=== PATIENT | female | born 1975 | race Caucasian/White ===

== ENCOUNTER 2021-06-30 08:53 | Outpatient (REF) | payer OTHER, SELFPAY ==
[2021-06-30 11:22] LABS: MANUAL DIFF FLAG NO
[2021-06-30 11:36] LABS: Basophils Percent Auto 0.2 % (0-2); Eosinophils Absolute Auto 0.1 X10*3/uL (0.0-0.4); Hematocrit 36.1 % (37.0-47.0); Hemoglobin 12.3 g/dl (12.0-16.0); Imm Gran Abs Auto 0.01 X10*3/uL (0.00-0.03); Imm Gran Pct Auto 0.2 % (0.0-0.4); Lymphocytes Absolute Auto 1.5 X10*3/uL (1.2-4.9); Lymphocytes Percent Auto 27.7 % (20-40); Mean Corpuscular HGB Conc 34.1 g/dl (31.0-35.0); Mean Corpuscular Hemoglobin 30.2 pg (27.0-33.0); Mean Corpuscular Volume 88.7 fL (80.0-98.0); Mean Platelet Volume 9.8 fL (9.4-12.3); Monocytes Absolute Auto 0.4 X10*3/uL (0.1-1.2); Monocytes Percent Auto 6.8 % (2-11); Neutrophils Absolute Auto 3.5 x10*3/uL (2.0-8.3); Neutrophils Percent Auto 63.1 % (45-73); Platelet Count 360 X10*3/uL (160-400); Red Blood Count 4.07 X10*6/uL (4.20-5.50); White Blood Count 5.5 X10*3/uL (4.8-10.8)
[2021-06-30 11:49] LABS: Alanine Aminotransferase 27 U/L (0-31); Anion Gap 12 (12-20); Aspartate Amino Transferase 25 U/L (5-31); Blood Urea Nitrogen 10 mg/dL (9-16); Calcium 9.7 mg/dL (8.4-10.2); Carbon Dioxide 24 mmol/L (22-29); Chloride 109 mmol/L (96-108); Cholesterol 175 mg/dL; Estimated Glomerular Filt Rate > 60; Glucose Fasting 93 mg/dL (60-99); HDL Cholesterol 52 mg/dL; LDL Cholesterol Calculated 109 mg/dl; Potassium 4.3 mmol/L (3.3-5.1); Sodium 141 mmol/L (135-145); Triglycerides 72 mg/dL
[2021-06-30 12:10] LABS: Free T4 (Free Thyroxine) 0.98 ng/dL (0.71-1.85); Thyroid Stimulating Hormone 1.04 uIU/mL (0.32-4.0); Vitamin D 25-OH Total 31.3 ng/mL (>30)
== END 2021-06-30 08:54 | disposition home or self-care (01) ==
LOC: HO.HMGCLDS 08:53
PROVIDERS: PCP Internal Medicine; Visit Provider Internal Medicine
DX: Z00.01 Encounter for general adult medical examination with abnormal findings (principal); E04.1 Nontoxic single thyroid nodule; E03.9 Hypothyroidism, unspecified; I10 Essential (primary) hypertension
CPT/HCPCS: 36415; 80048; 80061; 82306; 84439; 84443; 84450; 84460; 85025

== ENCOUNTER 2022-03-06 08:25 | Outpatient (REF) | payer OTHER, SELFPAY ==
--- NOTE | ~2022-03-06 | XR_ITS ---
EXAMINATION: XR SHOULDER, LEFT CLINICAL INFORMATION: Pain COMPARISON: None TECHNIQUE: Three views of the left shoulder. FINDINGS: Bone alignment is normal. No fracture or dislocation is seen. Joint spaces are normal. There is soft tissue calcification adjacent to the humeral head and greater tuberosity suggestive of calcific tendinitis. XR/XR shoulder LT min 2V IMPRESSION: Soft tissue calcification suggestive of calcific tendinitis.
== END 2022-03-06 08:26 | disposition home or self-care (01) ==
LOC: HO.HOSX 08:25
PROVIDERS: Visit Provider Orthopaedic Surgery
DX: M75.32 Calcific tendinitis of left shoulder (principal); R29.898 Other symptoms and signs involving the musculoskeletal system
CPT/HCPCS: 73030; 99202

== ENCOUNTER 2022-03-17 12:53 | Outpatient (REF) | payer OTHER, SELFPAY ==
--- NOTE | ~2022-03-17 | MR_ITS ---
EXAMINATION: MRI SHOULDER WITHOUT CONTRAST, LEFT CLINICAL INFORMATION: Calcific tendinitis. COMPARISON: X-ray 03/06/2022. TECHNIQUE: MRI of the shoulder without contrast is performed in a 1.5 Shira high-field scanner. FINDINGS: CORACOACROMIAL ARCH: No significant acromioclavicular arthritis. No significant fluid in the subacromial subdeltoid space. Undersurface of the acromion is concave. ROTATOR CUFF: Mild supraspinatus tendinosis. 1.5 x 1.5 cm (AP x ML), low T1/T2 signal focus in the supraspinatus tendon compatible with calcific tendinitis. This correlates with the x-ray findings. No focal tear. Infraspinatus, teres minor intact. Minimal distal subscapularis tendinosis. ROTATOR CUFF MUSCLES: No muscle atrophy or fatty infiltration. BICEPS TENDON: Intact LABRUM/CAPSULE: Small caliber posterior labrum. No focal labral tear is otherwise seen. GLENOHUMERAL JOINT/MARROW: Marrow signal is within normal limits. No fracture. No significant effusion. MR/MR shoulder LT wo con IMPRESSION: 1. Mild supraspinatus tendinosis. 1.5 x 1.5 cm focus of calcific tendinitis. 2. Small caliber posterior labrum. 3. Minimal distal subscapularis tendinosis.
== END 2022-03-17 12:54 | disposition home or self-care (01) ==
LOC: HO.MRI 12:53
PROVIDERS: Visit Provider Orthopaedic Surgery
DX: M75.32 Calcific tendinitis of left shoulder (principal); R29.898 Other symptoms and signs involving the musculoskeletal system
CPT/HCPCS: 73221

== ENCOUNTER → 2022-03-23 10:38 | Outpatient (BNVA) | payer OTHER, SELFPAY | PROVIDERS: PCP Internal Medicine; Visit Provider Orthopaedic Surgery | DX: S43.432D Superior glenoid labrum lesion of left shoulder, subsequent encounter (principal); R29.898 Other symptoms and signs involving the musculoskeletal system | CPT/HCPCS: 99212 ==

== ENCOUNTER 2022-07-04 08:00 | Outpatient (REF) | payer OTHER, SELFPAY ==
[2022-07-04 11:38] LABS: Hematocrit 37.8 % (37.0-47.0); Hemoglobin 12.5 g/dl (12.0-16.0)
[2022-07-04 14:12] LABS: Alanine Aminotransferase 22 U/L (0-31); Albumin Level 4.6 g/dL (3.5-5.0); Alkaline Phosphatase 50 U/L (39-117); Anion Gap 12 (12-20); Aspartate Amino Transferase 21 U/L (5-31); Bilirubin Total 0.4 mg/dL (0.0-1.0); Blood Urea Nitrogen 10 mg/dL (9-16); Calcium 9.3 mg/dL (8.4-10.2); Carbon Dioxide 25 mmol/L (22-29); Chloride 108 mmol/L (96-108); Cholesterol 178 mg/dL; Estimated Glomerular Filt Rate > 60; Glucose Fasting 104 mg/dL (60-99); HDL Cholesterol 55 mg/dL; LDL Cholesterol Calculated 107 mg/dl; Potassium 4.6 mmol/L (3.3-5.1); Sodium 140 mmol/L (135-145); Triglycerides 80 mg/dL
== END 2022-07-04 08:01 | disposition home or self-care (01) ==
LOC: HO.HMGCLDS 08:00
PROVIDERS: PCP Internal Medicine; Visit Provider Internal Medicine
DX: Z00.01 Encounter for general adult medical examination with abnormal findings (principal); S43.432A Superior glenoid labrum lesion of left shoulder, initial encounter; M75.32 Calcific tendinitis of left shoulder
CPT/HCPCS: 36415; 80053; 80061; 82306; 85014; 85018

== ENCOUNTER 2022-12-22 10:27 | Outpatient (REF) | payer OTHER, SELFPAY ==
[2022-12-22 12:16] LABS: Estimated Average Glucose 94 mg/dL; Hemoglobin A1c % 4.9 %
== END 2022-12-22 10:28 | disposition home or self-care (01) ==
LOC: HO.HMGCLDS 10:27
PROVIDERS: PCP Internal Medicine; Visit Provider Internal Medicine
DX: R73.01 Impaired fasting glucose (principal)
CPT/HCPCS: 36415; 83036

== ENCOUNTER 2023-02-01 12:51 | Outpatient (REF) | payer OTHER, SELFPAY ==
--- NOTE | ~2023-02-01 | US_ITS ---
EXAMINATION: US THYROID CLINICAL INFORMATION: Nontoxic single thyroid nodule. COMPARISON: Ultrasound thyroid 09/08/2019. TECHNIQUE: Linear transducer grayscale and color Doppler examination with attention to the region of the thyroid. FINDINGS: SIZE: Measurements of the thyroid lobes and nodules are given in sagittal, anteroposterior and transverse dimensions respectively. Right Thyroid Lobe: 5.2 x 1.7 x 2.2 cm, volume 10.2 mL. Previously 5.7 x 1.6 x 1.6 cm, volume 7.8 mL. Parenchyma: The gland echotexture is homogeneous. Thyroid vascularity is increased. Left Thyroid Lobe: 6.1 x 1.5 x 2.2 cm, volume 10.5 mL. Previously 5.5 x 1.6 x 1.7 cm, volume 8.0 mL. Parenchyma: The gland echotexture is homogeneous. Thyroid vascularity is increased. Isthmus: 0.4 cm in maximum AP dimension. Previously 0.3 cm. Estimated total number of nodules greater than or equal to 1 cm: 3. Feed Weigher nodules are described as follows: 1. Location: Right mid medial. Size: 2.3 x 1.3 x 2.1 cm, volume 3.32 mL. Previously: 2.5 x 1.3 x 1.8 cm, volume 3.06 mL. Nodule characteristics: Composition: Solid/almost completely solid (2). Echogenicity: Hypoechoic (2). Shape: Not taller than wide (0). Margins: Irregular (2). Echogenic Foci: None (0). ACR TI-RADS total points: 6 ACR TI-RADS category: 4 2. Location: Left superior medial. Size: 0.8 x 0.8 x 0.8 cm, volume 0.25 mL. Previously: New since the previous study. Nodule characteristics: Composition: Solid/almost completely solid (2). Echogenicity: Hypoechoic (2). Shape: Not taller than wide (0). Margins: Smooth (0). Echogenic Foci: None (0). ACR TI-RADS total points: 4 ACR TI-RADS category: 4 3. Location: Left mid lateral. Size: 1.0 x 0.5 x 0.6 cm, volume 0.14 mL. Previously: 1.1 x 0.5 x 0.8 cm, volume 0.23 mL. Nodule characteristics: Composition: Solid/almost completely solid (2). Echogenicity: Hypoechoic (2). Shape: Not taller than wide (0). Margins: Smooth (0). Echogenic Foci: None (0). ACR TI-RADS total points: 4 ACR TI-RADS category: 4 4. Location: Left inferior. Size: 1.0 x 0.6 x 1.0 cm, volume 0.30 mL. Previously: 0.8 x 0.5 x 0.7 cm, volume 0.15 mL. Nodule characteristics: Composition: Solid (2). Echogenicity: Hypoechoic (2). Shape: Not taller than wide (0). Margins: Smooth (0). Echogenic Foci: None (0). ACR TI-RADS total points: 4 ACR TI-RADS category: 4 5. Location: Right inferior medial. Size: 0.8 x 0.4 x 0.7 cm, volume 0.11 mL. Previously: 0.6 x 0.3 x 0.6 cm, volume 0.06 mL. Nodule characteristics: Composition: Solid/almost completely solid (2). Echogenicity: Hypoechoic (2). Shape: Not taller than wide (0). Margins: Smooth (0). Echogenic Foci: Punctate echogenic foci (3). ACR TI-RADS total points: 7 ACR TI-RADS category: 5 NODES: No lymphadenopathy is seen in the tissue surrounding the thyroid gland. US/US thyroid IMPRESSION: 1. Multinodular thyroid gland. 2. Left inferior 1.0 cm TR 4 thyroid nodule has increased in size. 3. Right inferior 0.8 cm TR 5 thyroid nodule has increased in size. 4. Recommend follow-up ultrasound in 12 months. ACR TI-RADS RECOMMENDATION REFERENCE: Ultrasound-guided fine-needle aspiration, followup ultrasound, no further follow up. * TR1 (0 point) and TR2 (2 points): No FNA or follow up. * TR3 (3 points): FNA if more than or equal to 2.5 cm in maximum dimension, followup ultrasound in 1, 3 and 5 years if 1.5 to 2.4 cm in maximum dimension. * TR4 (4-6 points): FNA if more than or equal to 1.5 cm in maximum dimension, followup ultrasound in 1, 2, 3 and 5 years if 1 to 1.4 cm in maximum dimension. * TR5 (more than or equal to 7 points): FNA if more than or equal to 1 cm in maximum dimension, followup ultrasound every year for 5 years if 0.5 to 0.9 cm in maximum dimension. * TR3, TR4 or TR5 nodules that are below the size threshold for followup receive no follow up.
== END 2023-02-01 12:52 | disposition home or self-care (01) ==
LOC: HO.HMGCX 12:51
PROVIDERS: PCP Internal Medicine; Visit Provider Nurse Practitioner Family
DX: E04.1 Nontoxic single thyroid nodule (principal)
CPT/HCPCS: 76536

== ENCOUNTER 2023-03-01 12:08 | Outpatient (REF) | payer OTHER, SELFPAY ==
[2023-03-01 14:40] LABS: Thyroid Stimulating Hormone 1.33 uIU/mL (0.32-4.0)
== END 2023-03-01 12:09 | disposition home or self-care (01) ==
LOC: HO.HMGCLDS 12:08
PROVIDERS: PCP Internal Medicine; Visit Provider Internal Medicine
DX: E04.1 Nontoxic single thyroid nodule (principal)
CPT/HCPCS: 36415; 84443

== ENCOUNTER 2023-10-16 09:18 | Outpatient (AMB) | payer OTHER, SELFPAY ==
--- NOTE | 2023-10-16 09:52 | MHC.PC.OV ---
Vital Signs 10/16/23 09:53 Height 5 ft 8 in BP 100/62 Blood Pressure Location Rt brachial Position Sitting Pulse 80 Pulse Source Pulse Oximeter Pulse Oximetry (%) 98 Oxygen Delivery Method Room Air Intake Visit Reasons: Annual PE (could not reschedule 2022) Intake Note: Pt is here today for her PE: Last mammogram 09/26/23, papsmear 09/19/18, cologuard 08/02/22 Is last menstrual period known: Yes Last menstrual period: 09/21/23 Allergies No Known Allergies Allergy (Verified 10/16/23 10:46) Medication List - Last Reconciled 10/16/23 by Cande Pyle MD acetaminophen (Tylenol Extra Strength) 500 mg PO Q6H PRN ibuprofen (Advil) 200 mg PO Q6H PRN multivitamin 1 tab PO DAILY Tobacco use date assessed: 10/16/23 Dental Screening Dental Screen Date: 10/16/23 Did you have a dental visit in the last 12 months?: Yes Did you have a dental problem in the last 6 months where you did not have access to dental care?: No Was dental information given to patient?: Patient has dentist HPI Annual PE (could not reschedule 2022) HPI Details 48-year-old lady here today for her physical exam. She has been feeling well except for decreased range of motion in her left shoulder joint on flexion extension of her left arm, unable to do pushups without eliciting pain in her left shoulder. She was diagnosed with calcific tendinosis and Superior labrum [id number] (SLAP) tear of left shoulder, has had physical therapy which affords only temporary improvement. She continues to exercise regularly, but avoids doing push-ups. She is currently being followed at [facility] endocrine clinic for follow-up of her multinodular goiter, currently asymptomatic. Thyroid biopsy was done 06/18/2023 at [facility] which showed presence of atypia of unknown significance. She is scheduled to follow-up with them later this year and have a repeat thyroid ultrasound done. She is up-to-date with her screening mammogram, last done09/26/23 with benign findings, her last papsmear 09/19/18 due again this year patient states she will call and schedule appointment, and had a cologuard 08/02/22 which came back negative. [facility] Medical History Superior glenoid labrum lesion of left shoulder, subsequent encounter Multinodular thyroid Herniation of intervertebral disc between L5 and S1 Lumbago without sciatica Surgical History H/O wisdom tooth extraction Family History Mother Essential hypertension Hypercholesterolemia Sister Liver cancer Social History Housing: House Alcohol intake: current Patient Tobacco Use Status: Former Tobacco user Cigarettes Per Day: 2 e-Cigarette/Vaping Use: Never Used Current occupational status: employed Cognitive needs: No Hearing needs: No Vision needs: Yes Female Reproductive History Menstrual Date of last menstrual period: 09/21/23 Questionnaire PHQ-9 Over the last 2 weeks, how often have you been bothered by any of the following problems? 1. Little interest or pleasure in doing things: not at all 2. Feeling down, depressed, or hopeless: not at all 3. Trouble falling or staying asleep, or sleeping too much: not at all 4. Feeling tired or having little energy: not at all 5. Poor appetite or overeating: not at all 6. Feeling bad about yourself - or that you are a failure or have let yourself or your family down: not at all 7. Trouble concentrating on things, such as reading the newspaper or watching television: not at all 8. Moving or speaking so slowly that other people could have noticed. Or the opposite - being so fidgety or restless that you have been moving around a lot more than usual: not at all 9. Thoughts that you would be better off or of hurting yourself in some way: not at all Total score: 0 Depression Screening Interpretation: Negative Depression Screening Done: Yes 45572 - PHQ-9 Billing: Yes Source: Developed by Drs. Yevgeniy Farooq, Era James, Yvon Bullard and colleagues, with an educational sujit from [employer]. Thrive Questionnaire Date Thrive assessed: 10/16/23 I am a: Patient What is your living situation today?: I have a steady place to live Within the past 12 months, did the food you bought not last and you didn't have the money to get more?: Never true Within the past 12 months, did you worry whether your food would run out before you got money to buy more?: Never true Do you have trouble paying for medicines?: No Do you have trouble getting transportation to medical appointments?: No Do you have trouble paying your heating and electricity bill?: No Do you have trouble taking care of your child, family member or friend?: No Do you have trouble with day-to-day activities such as bathing, preparing meals, shopping, managing finances, etc.?: No Are you currently unemployed and looking for a job?: No Are you interested in more education?: No THRIVE Score: 0 AUDIT C Alcohol Use Questionnaire (AUDIT-C) 1. How often do you have a drink containing alcohol?: Monthly or less 2. How many drinks containing alcohol do you have on a typical day when you are drinking?: 1 or 2 3. How often do you have six or more drinks on one occasion?: Never Total Score: 1 JOSIE-7 AMB Questionnaire JOSIE-7 Date JOSIE - 7 assessed: 10/16/23 Feeling nervous, anxious, or on edge: 0 = Not at all Not being able to stop or control worryin = Not at all Worrying too much about different things: 0 = Not at all Trouble relaxin = Not at all Being so restless that it is hard to sit still: 0 = Not at all Becoming easily annoyed or irritable: 0 = Not at all Feeling afraid as if something awful might happen: 0 = Not at all Total JOSIE-7 score (0-4 normal; 5-9 mild; 10-14 moderate; 15-21 severe): 0 Source: Developed by Drs. Yevgeniy Farooq, Era James, Yvon Bullard and colleagues, with an educational sujit from [employer]. JOSIE-7 Assessment Billing JOSIE-7 Assessment Tool: JOSIE-7 Assessment 02776 Review of Systems Const Denies fatigue, Denies fever(s), Denies headache(s) and Denies weakness Eyes Denies change in vision, Denies eye discharge and Denies itchy eyes ENT Reports Normal hearing present, Denies dizziness, Denies headache(s), Denies nasal congestion, Denies nasal discharge and Denies sore throat Card Denies chest pain, Denies lightheadedness, Denies palpitations and Denies dyspnea Resp Denies chest congestion, Denies cough, Denies dyspnea and Denies wheezing GI Denies abdominal pain, Denies change in bowel habits and Denies heartburn Denies urinary frequency, Denies dysuria and Denies urinary urgency Musc Reports as per HPI Skin/Breast Denies lesions and Denies rash Neuro Reports Normal hearing present, Denies dizziness, Denies headache(s), Denies Sensory deficit (Neuro) and Denies weakness Psych Reports no additional complaints Endo Denies fatigue, Denies polydipsia, Denies polyuria and Denies palpitations Aman/Lymph Denies easy bruising Aller/Immun Denies itchy eyes, Denies seasonal rhinorrhea and Denies wheezing Physical exam (Primary Care) Vital Signs: Last Vital Signs Pulse 80 10/16/23 09:53 BP 100/62 10/16/23 09:53 Pulse Ox 98 10/16/23 09:53 Oxygen Delivery Method Room Air 10/16/23 09:53 Tobacco/Smoking Status: Tobacco use Status Tobacco use date assessed 10/16/23 10/16/23 09:56 Patient Tobacco Use Status Former Tobacco user 10/16/23 09:56 e-Cigarette/Vaping Use Never Used 10/16/23 09:56 PHQ-9: PHQ-9 Score PHQ-9: Total score 0 10/19/23 00:17 Depression Screening Interpretation: Negative Thrive Assessment: Date of Thrive Assessment Date Thrive assessed 10/16/23 10/16/23 10:02 Const General: cooperative, no acute distress and alert Orientation/consciousness: patient oriented x3 HENMT Head: Yes normal to inspection and Yes normocephalic Ears: hearing grossly normal bilaterally, external ears normal, TM's normal bilaterally and EAC's normal General nose exam: Normal external nose present Face and sinus: Yes face symmetric Mouth: oropharynx normal and moist mucous membranes Eyes Conjunctivae: conjunctivae normal Sclerae: sclerae normal Pupils: Equal, round and reactive pupils present EOM: EOMs intact bilaterally Neck Other: Nonpalpable thyroid, nontender to palpation Neck: Yes full ROM and Yes no lymphadenopathy Carotids: normal carotid upstroke Lymphatic: no lymphadenopathy noted Chest Chest palpation & inspection: normal inspection of the chest Breast/axilla palpation: normal palpation of the breasts Resp Effort & Inspection: normal respiratory effort and able to speak in complete sentences Auscultation: clear to auscultation bilaterally Cardio Jugular venous distension: no JVD Rate: regular rate Rhythm: regular rhythm Heart sounds: S1 normal heart sound present and S2 normal heart sound present GI Inspection: Yes normal to inspection Palpation (GI): Soft to palpation Auscultation: normal bowel sounds General: Yes no CVA tenderness Back/Spine/Pelvis Back: no CVA tenderness and No back tenderness Skin General skin exam: no rashes or lesions noted Neuro General: patient oriented x3, gait normal, moves all extremities, no focal motor deficits and CN's II-XI intact bilaterally Cranial nerves: Yes Equal, round and reactive pupils present and Yes Normal hearing present Cognition (Neuro): normal cognition Gait exam (Neuro): Normal gait present Motor exam (neuro): 5/5 motor strength present throughout Sensory Exam: No Sensory deficit (Neuro) Extrem General: Yes normal to inspection, Yes full ROM (But with some limitation with backward extension of left arm), Yes no pedal edema and Yes normal gait Psych Appearance: grossly normal and well kempt Mental Status: mental status grossly normal Speech and movement: Normal speech and movement present Affect: normal affect Attitude: cooperative Thought process: Normal thought process present Thought content: Normal thought content present Assessment and Plan Assessment & Plan (1) Annual visit for general adult medical examination with abnormal findings: Code(s): Z00.01 - Encounter for general adult medical examination with abnormal findings Plan: Will check appropriate labs. Continue regular dental visit every 6 months and regular eye exams, at least every 2 years. Take adequate calcium in diet and vitamin-D 3 at 2000 IU per cap once a day, in addition to weight-bearing exercises to help maintain good muscle tone and weight control. Continued regular self-breast exam, up-to-date with her yearly mammogram, and cervical cancer screening, goes to [facility]. Up-to-date with all her vaccinations. Had Cologuard test for colon cancer screening which came back negative (2) Nodular thyroid disease: Comment: Followed by [facility] endocrinology Code(s): E04.1 - Nontoxic single thyroid nodule Plan: Currently asymptomatic, followed by [facility] endocrine clinic, yearly thyroid ultrasound ordered, last thyroid biopsy showed unremarkable findings. (3) Calcific tendinitis of left shoulder: Code(s): M75.32 - Calcific tendinitis of left shoulder Plan: Unable to do pushups due to pain, otherwise does no limitation range motion in left arm continues to do exercises (4) Screening for skin cancer: Code(s): Z12.83 - Encounter for screening for malignant neoplasm of skin Plan: Referral to Dermatology ordered Orders: Orders TSH reflex Free T4 10/16/23 E04.1 - Nontoxic single thyroid nodule, M75.32 - Calcific tendinitis of left shoulder, Z00.01 - Encounter for general adult medical examination with abnormal findings Vitamin D 25-OH Total 10/16/23 E04.1 - Nontoxic single thyroid nodule, M75.32 - Calcific tendinitis of left shoulder, Z00.01 - Encounter for general adult medical examination with abnormal findings Lipid Panel 10/16/23 E04.1 - Nontoxic single thyroid nodule, M75.32 - Calcific tendinitis of left shoulder, Z00.01 - Encounter for general adult medical examination with abnormal findings Basic Metabolic Panel Fasting 10/16/23 E04.1 - Nontoxic single thyroid nodule, M75.32 - Calcific tendinitis of left shoulder, Z00.01 - Encounter for general adult medical examination with abnormal findings Hemoglobin and Hematocrit 10/16/23 E04.1 - Nontoxic single thyroid nodule, M75.32 - Calcific tendinitis of left shoulder, Z00.01 - Encounter for general adult medical examination with abnormal findings Referrals Dermatology Referral Z12.83 - Encounter for screening for malignant neoplasm of skin Coding Level of Care Code Est Pt Prev Care 40-64y([id number]) Diagnoses Annual visit for general adult medical examination with abnormal findings Z00.01 Nodular thyroid disease E04.1 Calcific tendinitis of left shoulder M75.32 Screening for skin cancer Z12.83 Additional Codes JOSIE-7 Assessment Billing - JOSIE-7 Assessment Tool: JOSIE-7 Assessment [id number] ([id number])
[2023-10-16 09:53] VITALS: BP 100/62; PULSE 80; O2SAT 98
== END 2023-10-16 10:45 | disposition home or self-care (01) ==
PROVIDERS: Visit Provider Internal Medicine
DX: Z00.01 Encounter for general adult medical examination with abnormal findings (principal); E04.1 Nontoxic single thyroid nodule; M75.32 Calcific tendinitis of left shoulder; Z12.83 Encounter for screening for malignant neoplasm of skin
CPT/HCPCS: 99396

== ENCOUNTER 2023-10-26 09:44 | Outpatient (REF) | payer OTHER, SELFPAY ==
[2023-10-26 13:47] LABS: Hematocrit 35.9 % (37.0-47.0); Hemoglobin 12.2 g/dl (12.0-16.0)
[2023-10-26 14:23] LABS: Anion Gap 11 (12-20); Blood Urea Nitrogen 9 mg/dL (9-16); Calcium 9.5 mg/dL (8.4-10.2); Carbon Dioxide 27 mmol/L (22-29); Chloride 107 mmol/L (96-108); Cholesterol 202 mg/dL (<200); Estimated Glomerular Filt Rate > 60; Glucose Fasting 86 mg/dL (60-99); HDL Cholesterol 59 mg/dL (>40); LDL Cholesterol Calculated 123 mg/dL (<100); Potassium 4.3 mmol/L (3.3-5.1); Sodium 141 mmol/L (135-145); Triglycerides 100 mg/dL (<150)
[2023-10-26 14:46] LABS: TSH reflex Free T4 1.06 uIU/mL (0.32-4.0); Vitamin D 25-OH Total 38.3 ng/mL (>30)
== END 2023-10-26 09:45 | disposition home or self-care (01) ==
LOC: HO.HMGCLDS 09:44
PROVIDERS: PCP Internal Medicine; Visit Provider Internal Medicine
DX: Z00.01 Encounter for general adult medical examination with abnormal findings (principal); Z13.6 Encounter for screening for cardiovascular disorders; M75.32 Calcific tendinitis of left shoulder; E04.1 Nontoxic single thyroid nodule
CPT/HCPCS: 36415; 80048; 80061; 82306; 84443; 85014; 85018

== ENCOUNTER 2024-03-14 08:29 | Outpatient (AMB) | payer OTHER, SELFPAY ==
--- NOTE | 2024-03-14 08:26 | A.OFFPC_ITS ---
Intake Visit Reasons: discuss hormonal sx's Iphone [phone] Allergies No Known Allergies Allergy (Verified 03/14/24 08:27) Medication List - Last Reconciled 03/14/24 by Cande Pyle MD acetaminophen (Tylenol Extra Strength) 500 mg PO Q6H PRN ibuprofen (Advil) 200 mg PO Q6H PRN multivitamin 1 tab PO DAILY Tobacco use date assessed: 03/14/24 Dental Screening Dental Screen Date: 03/14/24 Did you have a dental visit in the last 12 months?: Yes Did you have a dental problem in the last 6 months where you did not have access to dental care?: No Was dental information given to patient?: Patient has dentist HPI discuss hormonal sx's Iphone [phone] HPI Details 48-year-old lady seen by telehealth tomarcia y complaining of mood swings and episodes of depressive symptoms on and off. Patient thinks that she is going through the change, as her periods has been erratic. Has had a month or 2 with no menstrual cycle, and her menses are heavier time, and sometimes are longer last for several weeks and sometimes would be only for a couple of days. She also has been having intermittent episodes of hot flashes. Has been taking Saint Rodger's Wort for several weeks now, uncertain whether it is helping or not. 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 Has tried getting into get an appointment for psychotherapy but has been unsuccessful. She also is trying to make an appointment with her OBGYN at [facility]. Denies any suicidal ideations or harmful thoughts. Has been exercising regularly which has been helping with improving her mood FORMERLY [facility], [facility]1983 Medical History (Updated 03/14/24 @ 09:03 by Cande Pyle MD) Pre-menstrual mood disorder Superior glenoid labrum lesion of left shoulder, subsequent encounter Multinodular thyroid Herniation of intervertebral disc between L5 and S1 Lumbago without sciatica Surgical History H/O wisdom tooth extraction Family History Mother Essential hypertension Hypercholesterolemia Sister Liver cancer Social History Housing: House Alcohol intake: current Patient Tobacco Use Status: Former Tobacco user Cigarettes Per Day: 2 e-Cigarette/Vaping Use: Never Used Current occupational status: employed Cognitive needs: No Hearing needs: No Vision needs: Yes Questionnaire PHQ-9 Over the last 2 weeks, how often have you been bothered by any of the following problems? 1. Little interest or pleasure in doing things: several days 2. Feeling down, depressed, or hopeless: several days 3. Trouble falling or staying asleep, or sleeping too much: not at all 4. Feeling tired or having little energy: several days 5. Poor appetite or overeating: not at all 6. Feeling bad about yourself - or that you are a failure or have let yourself or your family down: not at all 7. Trouble concentrating on things, such as reading the newspaper or watching television: not at all 8. Moving or speaking so slowly that other people could have noticed. Or the opposite - being so fidgety or restless that you have been moving around a lot more than usual: not at all 9. Thoughts that you would be better off or of hurting yourself in some way: not at all Total score: 3 Depression Screening Interpretation: Negative Depression Screening Done: Yes 14756 - PHQ-9 Billing: Yes Source: Developed by Drs. Yevgeniy Farooq, Yvon Puga and colleagues, with an educational sujit from [employer]. Thrive Questionnaire Date Thrive assessed: 10/16/23 JOSIE-7 AMB Questionnaire JOSIE-7 Date JOSIE - 7 assessed: 10/16/23 Source: Developed by Drs. Yevgeniy Farooq, Yvon Puga and colleagues, with an educational sujit from [employer]. Review of Systems Const Denies headache(s) and Denies weakness ENT Denies dizziness, Denies headache(s), Denies nasal congestion, Denies nasal discharge and Denies sore throat Card Denies chest pain, Denies lightheadedness and Denies dyspnea Resp Denies chest congestion, Denies cough and Denies dyspnea GI Denies abdominal pain, Denies change in bowel habits and Denies heartburn Denies urinary frequency, Denies dysuria and Denies urinary urgency Musc Reports no additional complaints Skin/Breast Denies lesions and Denies rash Neuro Denies dizziness, Denies headache(s) and Denies weakness Psych Reports as per HPI Endo Reports no additional complaints Aman/Lymph Reports no additional complaints Aller/Immun Reports no additional complaints Physical exam (Primary Care) Tobacco/Smoking Status: Tobacco use Status Tobacco use date assessed 03/14/24 03/14/24 08:28 Patient Tobacco Use Status Former Tobacco user 03/14/24 08:28 e-Cigarette/Vaping Use Never Used 03/14/24 08:28 PHQ-9: PHQ-9 Score PHQ-9: Total score 3 03/14/24 09:08 Depression Screening Interpretation: Negative Thrive Assessment: Date of Thrive Assessment Date Thrive assessed 10/16/23 03/14/24 08:28 Telehealth Telehealth Telehealth Platform: [employer] Location of provider rendering services: practice address Location of patient: address on file Patient Identification confirmed using: Name, : Yes Telehealth method: video Patient verbally consented to treatment: Yes Patient verbally consented to billing insurance company: Yes Patient informed of any privacy concerns related to visit: Yes Minutes spent on Phone/Video with Pt.: 15 Assessment and Plan Assessment & Plan (1) Pre-menstrual mood disorder: Code(s): F32.81 - Premenstrual dysphoric disorder Plan: Patient prefers not to be placed on antidepressants as this prevents her from flying, having difficulty in getting an appointment for therapy, referred to Dahiana Rao , for assistance in getting an appointment for psychotherapy. She is also currently scheduling appointment to see her OBGYN, Dr. Moraes at [facility] Coding Level of Care Code Tele Est Pt Level 3 (59949) Diagnoses Pre-menstrual mood disorder F32.81
== END 2024-03-14 12:11 | disposition home or self-care (01) ==
LOC: HO.HMGC 08:29
PROVIDERS: PCP Internal Medicine; Visit Provider Internal Medicine
DX: F32.81 Premenstrual dysphoric disorder (principal)
CPT/HCPCS: 99213

== ENCOUNTER 2024-03-14 09:58 | Outpatient (REF) | payer OTHER, SELFPAY ==
--- NOTE | ~2024-03-14 | US_ITS ---
EXAMINATION: US THYROID CLINICAL INFORMATION: Hypothyroidism, unspecified. COMPARISON: Ultrasound thyroid 02/01/2023 and 09/08/2019. TECHNIQUE: Linear transducer grayscale and color Doppler examination with attention to the region of the thyroid. FINDINGS: SIZE: Measurements of the thyroid lobes and nodules are given in sagittal, anteroposterior and transverse dimensions respectively. Right Thyroid Lobe: 5.3 x 1.6 x 2.3 cm, volume 10.2 mL. Previously 5.2 x 1.7 x 2.2 cm, volume 10.2 mL. Parenchyma: The gland echotexture is homogeneous. Thyroid vascularity is increased. Left Thyroid Lobe: 6.0 x 1.7 x 2.2 cm, volume 11.8 mL. Previously 6.1 x 1.5 x 2.2 cm, volume 10.5 mL. Parenchyma: The gland echotexture is homogeneous. Thyroid vascularity is increased. Isthmus: 0.4 cm in maximum AP dimension. Previously 0.4 cm. Estimated total number of nodules greater than or equal to 1 cm: 3. Sandstone Splitter nodules are described as follows: 1. Location: Right mid pole medial. Size: 2.1 x 1.2 x 2.0 cm, volume 2.80 mL. Previously: 2.3 x 1.3 x 2.1 cm, volume 3.32 mL. Nodule characteristics: Composition: Solid/almost completely solid (2). Echogenicity: Isoechoic (1). Shape: Not taller than wide (0). Margins: Irregular (2). Echogenic Foci: None (0). ACR TI-RADS total points: 5 Previous: 6 ACR TI-RADS category: 4 Previous: 4 Significant change in size (>/= 20% in 2 dimensions and minimal increase of 2 mm or 50% or greater increase in volume): No Change in features: No Change in ACR TI-RADS risk category: No 2. Location: Left mid pole lateral. Size: 1.0 x 0.5 x 0.6 cm, volume 0.16 mL. Previously: 1.0 x 0.5 x 0.6 cm, volume 0.14 mL. Nodule characteristics: Composition: Solid/almost completely solid (2). Echogenicity: Hypoechoic (2). Shape: Not taller than wide (0). Margins: Smooth (0). Echogenic Foci: None (0). ACR TI-RADS total points: 4 Previous: 4 ACR TI-RADS category: 4 Previous: 4 Significant change in size (>/= 20% in 2 dimensions and minimal increase of 2 mm or 50% or greater increase in volume): No Change in features: No Change in ACR TI-RADS risk category: No 3. Location: Left midpole medial. Size: 0.8 x 0.3 x 0.6 cm, volume 0.08 mL. Previously: 0.8 x 0.8 x 0.8 cm, volume 0.25 mL. Nodule characteristics: Composition: Solid/almost completely solid (2). Echogenicity: Isoechoic (1). Shape: Not taller than wide (0). Margins: Smooth (0). Echogenic Foci: None (0). ACR TI-RADS total points: 3 Previous: 4 ACR TI-RADS category: 3 Previous: 4 Significant change in size (>/= 20% in 2 dimensions and minimal increase of 2 mm or 50% or greater increase in volume): No Change in features: No Change in ACR TI-RADS risk category: Yes, decreased 4. Location: Left lower pole medial. Size: 1.1 x 0.6 x 1.2 cm, volume 0.40 mL. Previously: 1.0 x 0.6 x 1.0 cm, volume 0.30 mL. Nodule characteristics: Composition: Solid (2). Echogenicity: Hypoechoic (2). Shape: Not taller than wide (0). Margins: Smooth (0). Echogenic Foci: None (0). ACR TI-RADS total points: 4 Previous: 4 ACR TI-RADS category: 4 Previous: 4 Significant change in size (>/= 20% in 2 dimensions and minimal increase of 2 mm or 50% or greater increase in volume): No Change in features: No Change in ACR TI-RADS risk category: No 5. Location: Right isthmus lower pole. Size: 0.9 x 0.4 x 0.7 cm, volume 0.14 mL. Previously: 0.8 x 0.4 x 0.7 cm, volume 0.11 mL. Nodule characteristics: Composition: Solid/almost completely solid (2). Echogenicity: Hypoechoic (2). Shape: Not taller than wide (0). Margins: Smooth (0). Echogenic Foci: None (0). ACR TI-RADS total points: 4 Previous: 7 ACR TI-RADS category: 4 Previous: 5 Significant change in size (>/= 20% in 2 dimensions and minimal increase of 2 mm or 50% or greater increase in volume): No Change in features: No Change in ACR TI-RADS risk category: Yes, decreased NODES: No lymphadenopathy is seen in the tissue surrounding the thyroid gland. US/US thyroid IMPRESSION: Mildly enlarged hypervascular thyroid. The right midpole nodule that measures 2.1 cm and is TR 4 meets criteria for biopsy if this has not already been performed. It is comforting; however, that the mass has decreased in volume when compared to the prior study. ACR TI-RADS RECOMMENDATION REFERENCE: Ultrasound-guided fine-needle aspiration, follow up ultrasound, no further followup. * TR1 (0 point) and TR2 (2 points): No FNA or followup * TR3 (3 points): FNA if more than or equal to 2.5 cm in maximum dimension, follow up ultrasound in 1, 3 and 5 years if 1.5 to 2.4 cm in maximum dimension. * TR4 (4-6 points): FNA if more than or equal to 1.5 cm in maximum dimension, follow up ultrasound in 1, 2, 3 and 5 years if 1 to 1.4 cm in maximum dimension. * TR5 (more than or equal to 7 points): FNA if more than or equal to 1 cm in maximum dimension, follow up ultrasound every year for 5 years if 0.5 to 0.9 cm in maximum dimension. * TR3, TR4 or TR5 nodules that are below the size threshold for follow up receive no followup. Electronically signed by: Kieran Mcdonough MD 04/02/2024 12:20 AM EDT
== END 2024-03-14 09:59 | disposition home or self-care (01) ==
LOC: HO.HMGCX 09:58
PROVIDERS: PCP Internal Medicine; Visit Provider Internal Medicine
DX: E04.1 Nontoxic single thyroid nodule (principal); E03.9 Hypothyroidism, unspecified
CPT/HCPCS: 76536

== ENCOUNTER 2024-10-22 10:47 | Outpatient (AMB) | payer OTHER, SELFPAY ==
--- NOTE | 2024-10-22 11:32 | A.OFFVIS_ITS ---
Intake Intake Visit Reasons: PE Allergies No Known Allergies Allergy (Verified 03/14/24 08:27) PFSH Medical History (Updated 04/03/24 @ 00:34 by Cande Pyle MD) Right thyroid nodule Pre-menstrual mood disorder Superior glenoid labrum lesion of left shoulder, subsequent encounter Multinodular thyroid Herniation of intervertebral disc between L5 and S1 Lumbago without sciatica Surgical History H/O wisdom tooth extraction Family History Mother Essential hypertension Hypercholesterolemia Sister Liver cancer Social History Housing: House Alcohol intake: current Patient Tobacco Use Status: Former Tobacco user Cigarettes Per Day: 2 e-Cigarette/Vaping Use: Never Used Current occupational status: employed Cognitive needs: No Hearing needs: No Vision needs: Yes Questionnaire PHQ-9 Over the last 2 weeks, how often have you been bothered by any of the following problems? 1. Little interest or pleasure in doing things: not at all 2. Feeling down, depressed, or hopeless: not at all 3. Trouble falling or staying asleep, or sleeping too much: not at all 4. Feeling tired or having little energy: not at all 5. Poor appetite or overeating: not at all 6. Feeling bad about yourself - or that you are a failure or have let yourself or your family down: not at all 7. Trouble concentrating on things, such as reading the newspaper or watching t [employer]: not at all 8. Moving or speaking so slowly that other people could have noticed. Or the opposite - being so fidgety or restless that you have been moving around a lot more than usual: not at all 9. Thoughts that you would be better off or of hurting yourself in some way: not at all Total score: 0 Source: Developed by Drs. Yevgeniy Farooq, Era James, Yvon Bullard and colleagues, with an educational sujti from [employer]. Quality Reporting (2019) Depression/Bipolar (159/160/161/177) PHQ-9: Total score: 0 Coding
--- NOTE | 2024-10-22 11:33 | MHC.PC.OV ---
Vital Signs 10/22/24 11:50 Height 5 ft 8 in Weight 193 lb BMI 29.3 BP 102/60 Blood Pressure Location Rt brachial Position Sitting Respiration 16 Pulse 74 Pulse Source Pulse Oximeter Temp 98.2 F Temp Source Oral Pulse Oximetry (%) 99 Oxygen Delivery Method Room Air Intake Visit Reasons: PE Intake Note: Pt is here today for her PE: Last mammogram 10/20/24, papsmear 06/15/23, colonoscopy 08/02/22 Allergies No Known Allergies Allergy (Verified 10/22/24 11:57) Medication List - Last Reconciled 10/26/24 by Cande Pyle MD acetaminophen (Tylenol Extra Strength) 500 mg PO Q6H PRN ibuprofen (Advil) 200 mg PO Q6H PRN multivitamin 1 tab PO DAILY Tobacco use date assessed: 10/22/24 Dental Screening Dental Screen Date: 10/22/24 Did you have a dental visit in the last 12 months?: Yes Did you have a dental problem in the last 6 months where you did not have access to dental care?: No Was dental information given to patient?: Patient has dentist HPI PE HPI Details 49-year-old lady with history multinodular thyroid, with last thyroid ultrasound showing decreasing size in her thyroid nodules, which are already biopsied showing presence of Hurthle cells, here today for her physical exam. She is up-to-date with her breast cancer screening, with last mammogram done 10/20/24 showing benign findings. She goes to her own OBGYN for her cervical cancer screening with last papsmear done 06/15/23 showing benign findings. She is also up-to-date with her colon cancer screening, with last cologuard done 08/02/22 coming back with negative results, due again in 2025. She has been feeling well, with no complaints at present time, has been compliant with healthy eating habits and exercises regularly, up-to-date with all her vaccines. [facility] Medical History (Updated 10/22/24 @ 12:16 by Cande Pyle MD) Left elbow pain Right thyroid nodule Pre-menstrual mood disorder Superior glenoid labrum lesion of left shoulder, subsequent encounter Multinodular thyroid Herniation of intervertebral disc between L5 and S1 Lumbago without sciatica Surgical History H/O wisdom tooth extraction Family History Mother Essential hypertension Hypercholesterolemia Sister Liver cancer Social History Housing: House Alcohol intake: current Patient Tobacco Use Status: Former Tobacco user Cigarettes Per Day: 2 e-Cigarette/Vaping Use: Never Used Current occupational status: employed Cognitive needs: No Hearing needs: No Vision needs: Yes Female Reproductive History Menstrual control method: progestin IUCD Date of last pap smear: 08/13/24 (Normal) Date of Mammogram: 09/29/24 (Benign) Other: Sees Dr. Riojas her Pap and orders her screening mammogram, currently up-to-date Questionnaire PHQ-9 Over the last 2 weeks, how often have you been bothered by any of the following problems? 1. Little interest or pleasure in doing things: not at all 2. Feeling down, depressed, or hopeless: not at all 3. Trouble falling or staying asleep, or sleeping too much: not at all 4. Feeling tired or having little energy: not at all 5. Poor appetite or overeating: not at all 6. Feeling bad about yourself - or that you are a failure or have let yourself or your family down: not at all 7. Trouble concentrating on things, such as reading the newspaper or watching television: not at all 8. Moving or speaking so slowly that other people could have noticed. Or the opposite - being so fidgety or restless that you have been moving around a lot more than usual: not at all 9. Thoughts that you would be better off or of hurting yourself in some way: not at all Total score: 0 Depression Screening Interpretation: Negative Depression Screening Done: Yes 88031 - PHQ-9 Billing: Yes Source: Developed by Drs. Yevgeniy Farooq, Era James, Yvon Bullard and colleagues, with an educational sujit from [employer]. Thrive Questionnaire Date Thrive assessed: 10/15/24 I am a: Patient What is your living situation today?: I have a steady place to live Within the past 12 months, did the food you bought not last and you didn't have the money to get more?: Never true Within the past 12 months, did you worry whether your food would run out before you got money to buy more?: Never true Do you have trouble paying for medicines?: No Do you have trouble getting transportation to medical appointments?: No Do you have trouble paying your heating and electricity bill?: No Do you have trouble taking care of your child, family member or friend?: No Do you have trouble with day-to-day activities such as bathing, preparing meals, shopping, managing finances, etc.?: No Are you currently unemployed and looking for a job?: No Are you interested in more education?: No Please select the resources that you would like help with: None Currently or been in a relationship where the following occur: No concerns reported THRIVE Score: 0 AUDIT C Alcohol Use Questionnaire (AUDIT-C) 1. How often do you have a drink containing alcohol?: Monthly or less 2. How many drinks containing alcohol do you have on a typical day when you are drinking?: 1 or 2 3. How often do you have six or more drinks on one occasion?: Never Total Score: 1 JOSIE-7 AMB Questionnaire JOSIE-7 Date JOSIE - 7 assessed: 10/22/24 Feeling nervous, anxious, or on edge: 0 = Not at all Not being able to stop or control worryin = Not at all Worrying too much about different things: 0 = Not at all Trouble relaxin = Not at all Being so restless that it is hard to sit still: 0 = Not at all Becoming easily annoyed or irritable: 0 = Not at all Feeling afraid as if something awful might happen: 0 = Not at all Total JOSIE-7 score (0-4 normal; 5-9 mild; 10-14 moderate; 15-21 severe): 0 Source: Developed by Drs. Yevgeniy Farooq, Era James, Yvon Bullard and colleagues, with an educational sujit from [employer]. JOSIE-7 Assessment Billing JOSIE-7 Assessment Tool: JOSIE-7 Assessment 89666 Review of Systems Const Denies headache(s) and Denies weakness Eyes Denies change in vision ENT Reports Normal hearing present, Denies dizziness, Denies headache(s), Denies nasal congestion, Denies nasal discharge and Denies sore throat Card Denies chest pain, Denies lightheadedness and Denies dyspnea Resp Denies chest congestion, Denies cough and Denies dyspnea GI Denies abdominal pain, Denies change in bowel habits and Denies heartburn Denies urinary frequency, Denies dysuria and Denies urinary urgency Musc Reports no additional complaints Skin/Breast Denies lesions and Denies rash Neuro Reports Normal hearing present, Denies dizziness, Denies headache(s), Denies Sensory deficit (Neuro) and Denies weakness Psych Reports as per HPI Endo Reports no additional complaints Aman/Lymph Reports no additional complaints Aller/Immun Reports no additional complaints Physical exam (Primary Care) Vital Signs: Last Vital Signs Temp 98.2 F 10/22/24 11:50 Pulse 74 10/22/24 11:50 Resp 16 10/22/24 11:50 BP 102/60 10/22/24 11:50 Pulse Ox 99 10/22/24 11:50 Oxygen Delivery Method Room Air 10/22/24 11:50 BMI result Body Mass Index 29.3 Tobacco/Smoking Status: Tobacco use Status Tobacco use date assessed 10/22/24 10/22/24 11:35 Patient Tobacco Use Status Former Tobacco user 10/22/24 11:35 e-Cigarette/Vaping Use Never Used 10/22/24 11:35 PHQ-9: PHQ-9 Score PHQ-9: Total score 0 10/22/24 12:23 Depression Screening Interpretation: Negative Thrive Assessment: Date of Thrive Assessment Date Thrive assessed 10/15/24 10/22/24 11:35 Currently or been in a relationship where the following occur: No concerns reported Advance Care Planning discussion: Completed/Scanned Date of discussion: 10/22/24 Who was present: Patient Forms completed: Health Care Proxy Time spent: 16-45 minutes Actual minutes spent: 2 Const General: cooperative, no acute distress and alert Orientation/consciousness: patient oriented x3 HENMT Head: Yes normal to inspection and Yes normocephalic Ears: hearing grossly normal bilaterally, external ears normal, TM's normal bilaterally and EAC's normal General nose exam: Normal external nose present Face and sinus: Yes face symmetric Mouth: oropharynx normal and moist mucous membranes Eyes Conjunctivae: conjunctivae normal Sclerae: sclerae normal Pupils: Equal, round and reactive pupils present EOM: EOMs intact bilaterally Neck Other: Nonpalpable thyroid, nontender to palpation Neck: Yes full ROM and Yes no lymphadenopathy Carotids: normal carotid upstroke Lymphatic: no lymphadenopathy noted Chest Chest palpation & inspection: normal inspection of the chest Breast/axilla palpation: normal palpation of the breasts Resp Effort & Inspection: normal respiratory effort and able to speak in complete sentences Auscultation: clear to auscultation bilaterally Cardio Jugular venous distension: no JVD Rate: regular rate Rhythm: regular rhythm Heart sounds: S1 normal heart sound present and S2 normal heart sound present GI Inspection: Yes normal to inspection Palpation (GI): Soft to palpation Auscultation: normal bowel sounds General: Yes no CVA tenderness Back/Spine/Pelvis Back: no CVA tenderness and No back tenderness Skin General skin exam: no rashes or lesions noted Neuro General: patient oriented x3, gait normal, moves all extremities, no focal motor deficits and CN's II-XI intact bilaterally Cranial nerves: Yes Equal, round and reactive pupils present and Yes Normal hearing present Cognition (Neuro): normal cognition Gait exam (Neuro): Normal gait present Motor exam (neuro): 5/5 motor strength present throughout Sensory Exam: No Sensory deficit (Neuro) Extrem General: Yes normal to inspection, Yes full ROM (But with some limitation with backward extension of left arm), Yes no pedal edema and Yes normal gait Psych Appearance: grossly normal and well kempt Mental Status: mental status grossly normal Speech and movement: Normal speech and movement present Affect: normal affect Attitude: cooperative Thought process: Normal thought process present Thought content: Normal thought content present Coding Level of Care Code Est Pt Prev Care 40-64y(23596) Diagnoses Annual visit for general adult medical examination with abnormal findings Z00.01 Multinodular thyroid E04.2 Pre-menstrual mood disorder F32.81 Right thyroid nodule E04.1 Left elbow pain M25.522 Advanced directives, counseling/discussion Z71.89 Additional Codes PHQ-9 - 54996 - PHQ-9 Billing: Yes ([id number]) JOSIE-7 Assessment Billing - JOSIE-7 Assessment Tool: JOSIE-7 Assessment 00804 ([id number]) Vital Signs *Quality* - Advance Care Planning discussion: Completed/Scanned ([id number]) Vital Signs *Quality* - Time spent: 16-45 minutes ([id number]) Assessment & Plan Assessment & Plan (1) Annual visit for general adult medical examination with abnormal findings: Code(s): Z00.01 - Encounter for general adult medical examination with abnormal findings Plan: Will check appropriate labs. Continue regular dental visit every 6 months and regular eye exams, at least every 2 years. Take adequate calcium in diet and vitamin-D 3 at 2000 IU per cap once a day, in addition to weight-bearing exercises to help maintain good muscle tone and weight control. Instructed to do self-breast exam, and continue with yearly mammogram, up-to-date with her cervical cancer screening, up-to-date with her colon cancer screening. Up-to-date with all her vaccines. (2) Multinodular thyroid: Comment: Followed at [facility] endocrine clinic Code(s): E04.2 - Nontoxic multinodular goiter Category: Medical Plan: Ordered a thyroid ultrasound (3) Pre-menstrual mood disorder: Code(s): F32.81 - Premenstrual dysphoric disorder Category: Medical Plan: Will check TSH, free T4 thyroid peroxidase antibodies, and CBC as well as basic metabolic panel. Patient is still having regular periods (4) Right thyroid nodule: Code(s): E04.1 - Nontoxic single thyroid nodule Category: Medical Plan: Thyroid ultrasound ordered (5) Left elbow pain: Code(s): M25.522 - Pain in left elbow Category: Medical Plan: Physical therapy consult ordered (6) Advanced directives, counseling/discussion: Code(s): Z71.89 - Other specified counseling Plan: Initiated the conversation about Advanced Directives. Advanced Directives help patients prepare for current and future decisions about their medical treatment and place of care. Discussed with patient that it is a process where a patients current condition and prognosis are reviewed, their wishes for information regarding their illness are elicited, and likely medical dilemmas are presented and options discussed. Healthcare proxy form completed today. The form can be amended as needed, reviewed yearly and make changes as needed Orders: Orders Basic Metabolic Panel Fasting 10/24/24 E04.1 - Nontoxic single thyroid nodule, E04.2 - Nontoxic multinodular goiter, F32.81 - Premenstrual dysphoric disorder Vitamin D 25-OH Total 10/24/24 E04.1 - Nontoxic single thyroid nodule, E04.2 - Nontoxic multinodular goiter, F32.81 - Premenstrual dysphoric disorder Thyroid Peroxidase Antibodies 10/24/24 E04.1 - Nontoxic single thyroid nodule, E04.2 - Nontoxic multinodular goiter, F32.81 - Premenstrual dysphoric disorder Thyroid Stimulating Hormone 10/24/24 E04.1 - Nontoxic single thyroid nodule, E04.2 - Nontoxic multinodular goiter, F32.81 - Premenstrual dysphoric disorder Complete Blood Count Auto Diff 10/24/24 E04.1 - Nontoxic single thyroid nodule, E04.2 - Nontoxic multinodular goiter, F32.81 - Premenstrual dysphoric disorder PT Evaluation and Treatment 10/22/24 M25.522 - Pain in left elbow Lipid Panel 10/24/24 E04.1 - Nontoxic single thyroid nodule, E04.2 - Nontoxic multinodular goiter, F32.81 - Premenstrual dysphoric disorder Free T4 (Free Thyroxine) 10/24/24 E04.1 - Nontoxic single thyroid nodule, E04.2 - Nontoxic multinodular goiter, F32.81 - Premenstrual dysphoric disorder
[2024-10-22 11:50] VITALS: BP 102/60; PULSE 74; RESP 16; TEMP 36.8; O2SAT 99; BMI 29.3
--- OUTSIDE RECORDS SUMMARY | 2024-10-22 12:32 | XMS_ITS | Continuity of Care Document ---
Author Name [facility] Organization [facility] Care Team Providers Care Relay Tester Helper Name Role Phone [facility] Unavailable Unavailable Problems Combined list of problems from Department of Defense and Veterans Affairs facilities. It does not include entries that were removed or entered in error. Problem Status Onset Date Problem Type Date of Resolution Comments Source Encounter for pre-employment examination Active 09/23/2024 Diagnosis [id number] [place] Immunizations Combined list of available immunizations from the Department of Defense and Veterans Affairs facilities. 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 Status Comments Source typhoid Vi capsular polysaccharid e vac 2021 [id number] sanofi pasteur complet ed typhoid Vi capsular polysacch aride vac 05/24/22 Given Ambulat ory Pharmac y COVID-19 vaccine(Pfize r Bival 12yr+) 2021 [id number] PFIZER complet ed COVID-19 vaccine(P fizer Bival 12yr+) 05/21/22 Given Ambulat ory Pharmac y meningococcal A,C,Y,W-135 (MCV4P) 2021 [id number] 114 sanofi pasteur complet ed meningoco ccal A,C,Y,W-1 35 (MCV4P) 02/28/22 Given Ambulat ory Pharmac y COVID Vaccine Moderna 2020 [id number] 207 complet ed COVID Vaccine Moderna 05/24/21 Given Ambulat ory Pharmac y influenza, injectable, quadrivalent 2020 [id number] 158 GlaxoSmithKli ne complet ed influenza , injectabl e, quadrival ent 03/31/21 Given Ambulat ory Pharmac y COVID Vaccine Moderna 2020 [id number] 207 complet ed COVID Vaccine Moderna 09/07/20 Given Ambulat ory Pharmac y COVID Vaccine Moderna 2020 [id number] 207 complet ed COVID Vaccine Moderna 08/09/20 Given Ambulat ory Pharmac y typhoid Vi capsular polysaccharid e vac 2019 [id number] 101 sanofi pasteur complet ed typhoid Vi capsular polysacch aride vac 05/22/20 Given Ambulat ory Pharmac y influenza virus vaccine, inactivated 2019 88 Seqirus complet ed influenza virus vaccine, inactivat ed 04/22/20 Given Ambulat ory Pharmac y typhoid Vi capsular polysaccharid e vac 2017 [id number] 101 sanofi pasteur complet ed typhoid Vi capsular polysacch aride vac 05/28/18 Given Ambulat ory Pharmac y Influenza, inj, MDCK, quadrivalent- pf 2017 171 complet ed Influenza , inj, MDCK, quadrival ent-pf 04/18/18 Given Ambulat ory Pharmac y influenza, injectable, quadrivalent 2017 [id number] 158 Seqirus complet ed influenza , injectabl e, quadrival ent 04/18/18 Given Ambulat ory Pharmac y influenza, seasonal, injectable-pf 2016 [id number] Unknown complet ed influenza , seasonal, injectabl e-pf 05/15/17 Given Ambulat ory Pharmac y meningococcal A,C,Y,W-135 (MCV4P) 2016 [id number] 114 sanofi pasteur complet ed meningoco ccal A,C,Y,W-1 35 (MCV4P) 01/18/17 Given Ambulat ory Pharmac y typhoid Vi capsular polysaccharid e vac 2015 [id number] 101 sanofi pasteur complet ed typhoid Vi capsular polysacch aride vac 06/16/16 Given Ambulat ory Pharmac y influenza, seasonal, injectable-pf 2015 [id number] 140 Seqirus complet ed influenza , seasonal, injectabl e-pf 05/17/16 Given Ambulat ory Pharmac y influenza, seasonal, injectable-pf 2014 [id number] 140 CSL Behring complet ed influenza , seasonal, injectabl e-pf 05/22/15 Given Ambulat ory Pharmac y tetanus, diphtheria, acellular pertu is 2014 [id number] 115 sanofi pasteur complet ed tetanus, diphtheri a, acellular pertussis 09/28/14 Given Ambulat ory Pharmac y influenza, seasonal, injectable 2013 [id number] 141 CSL Behring complet ed influenza , seasonal, injectabl e 03/22/14 Given Ambulat ory Pharmac y Influenza, injectable, MDCK-pf 2012 [id number] 153 Novartis Pharmaceutica ls complet ed Influenza , injectabl e, MDCK-pf 05/11/13 Given Ambulat ory Pharmac y influenza, seasonal, injectable-pf 2011 [id number] 140 CSL Behring complet ed influenza , seasonal, injectabl e-pf 04/28/12 Given Ambulat ory Pharmac y meningococcal A,C,Y,W-135 (MCV4P) 2011 [id number] 114 sanofi pasteur complet ed meningoco ccal A,C,Y,W-1 35 (MCV4P) 11/19/11 Given Ambulat ory Pharmac y influenza, seasonal, injectable-pf 2010 [id number] 140 CSL Behring complet ed influenza , seasonal, injectabl e-pf 06/17/11 Given Ambulat ory Pharmac y typhoid Vi capsular polysaccharid e vac 2010 [id number] 101 sanofi pasteur complet ed typhoid Vi capsular polysacch aride vac 04/16/11 Given Ambulat ory Pharmac y yellow fever vaccine 2010 [id number] 37 sanofi pasteur complet ed yellow fever vaccine 04/16/11 Given Ambulat ory Pharmac y tetanus, diphtheria, acellular pertu is 2010 [id number] 115 sanofi pasteur complet ed tetanus, diphtheri a, acellular pertussis 04/16/11 Given Ambulat ory Pharmac y influenza virus vaccine,split 2009 [id number] 15 CSL Behring complet ed influenza virus vaccine,s plit 04/26/10 Given Ambulat ory Pharmac y anthrax vaccine 2009 [id number] 24 Emergent Biosolutions complet ed anthrax vaccine 02/21/10 Given Ambulat ory Pharmac y vaccinia (smallpox) vaccine 2009 [id number] 3A 75 KOALA.CH complet ed vaccinia (smallpox ) vaccine 02/21/10 Given Ambulat ory Pharmac y Novel influenza-H1N 1-09, injectable 2009 [id number] 127 Novartis Pharmaceutica ls complet ed Novel influenza -P1D4-58, injectabl e 08/19/09 Given Ambulat ory Pharmac y influenza virus vaccine,split 2008 [id number] 15 GlaxoSmithKli ne complet ed influenza virus vaccine,s plit 04/16/09 Given Ambulat ory Pharmac y typhoid Vi capsular polysaccharid e vac 2008 [id number] 101 sanofi pasteur complet ed typhoid Vi capsular polysacch aride vac 04/16/09 Given Ambulat ory Pharmac y influenza virus vaccine,split 2007 [id number] 15 GlaxoSmithKli ne complet ed influenza virus vaccine,s plit 05/19/08 Given Ambulat ory Pharmac y influenza virus vaccine,split 2006 [id number] 15 GlaxoSmithKli ne complet ed influenza virus vaccine,s plit 05/18/07 Given Ambulat ory Pharmac y typhoid vaccine, parenteral 2006 [id number] 41 sanofi pasteur complet ed typhoid vaccine, parentera l 05/06/07 Given Ambulat ory Pharmac y anthrax vaccine 2006 [id number] 24 Emergent [employer] complet ed anthrax vaccine 12/31/06 Given Ambulat ory Pharmac y meningococcal polysaccharid e (MPSV4) 2006 [id number] 32 sanofi pasteur complet ed meningoco ccal polysacch aride (MPSV4) 12/05/06 Given Ambulat ory Pharmac y hepatitis B adult vaccine 2006 43 Merck & Company Inc complet ed hepatitis B adult vaccine 12/05/06 Given Ambulat ory Pharmac y influenza virus vaccine, live 2005 111 complet ed influenza virus vaccine, live 04/30/06 Given Ambulat ory Pharmac y hepatitis B adult vaccine 2005 [id number] 43 GlaxoSmithKli ne complet ed hepatitis B adult vaccine 09/21/05 Given Ambulat ory Pharmac y hepatitis B adult vaccine 2005 [id number] 43 GlaxoSmithKli ne complet ed hepatitis B adult vaccine 08/18/05 Given Ambulat ory Pharmac y tuberculin purified protein derivative 2005 [id number] 96 sanofi pasteur complet ed tuberculi n purified protein derivativ e 08/18/05 Given Ambulat ory Pharmac y influenza virus vaccine,split 2004 [id number] 15 sanofi pasteur complet ed influenza virus vaccine,s plit 05/31/05 Given Ambulat ory Pharmac y typhoid vaccine, parenteral 2004 [id number] 41 sanofi pasteur complet ed typhoid vaccine, parentera l 04/25/05 Given Ambulat ory Pharmac y influenza virus vaccine, live 2004 [id number] 111 No.1 [employer] [facility] comple t ed influenza virus vaccine, live 07/23/04 Given Ambulat ory Pharmac y anthrax vaccine 2003 [id number] 24 Emergent Biosolutions complet ed anthrax vaccine 11/04/03 Given Ambulat ory Pharmac y anthrax vaccine 2002 [id number] 24 Emergent [employer] complet ed anthrax vaccine 05/05/03 Given Ambulat ory Pharmac y influenza virus vaccine, whole virus 2002 [id number] 16 Novartis Pharmaceutica ls complet ed influenza virus vaccine, whole virus 05/05/03 Given Ambulat ory Pharmac y tuberculin purified protein derivative 2002 [id number] 96 sanofi pasteur complet ed tuberculi n purified protein derivativ e 05/05/03 Given Ambulat ory Pharmac y typhoid vaccine, parenteral 2002 [id number] 41 sanofi pasteur complet ed typhoid vaccine, parentera l 05/05/03 Given Ambulat ory Pharmac y anthrax vaccine 2002 [id number] 24 [employer] complet ed anthrax vaccine 12/04/02 Given Ambulat ory Pharmac y anthrax vaccine 2002 [id number] 24 [employer] complet ed anthrax vaccine 11/20/02 Given Ambulat ory Pharmac y anthrax vaccine 2002 [id number] 24 [employer] complet ed anthrax vaccine 11/05/02 Given Ambulat ory Pharmac y influenza virus vaccine, whole virus 2001 [id number] 16 sanofi pasteur complet ed influenza virus vaccine, whole virus 05/08/02 Given Ambulat ory Pharmac y tuberculin purified protein derivative 2001 96 sanofi pasteur complet ed tuberculi n purified protein derivativ e 04/18/02 Given Ambulat ory Pharmac y influenza virus vaccine, whole virus 2001 [id number] 16 sanofi pasteur complet ed influenza virus vaccine, whole virus 07/18/01 Given Ambulat ory Pharmac y typhoid vaccine, parenteral 2000 [id number] 41 sanofi pasteur complet ed typhoid vaccine, parentera l 05/23/01 Given Ambulat ory Pharmac y yellow fever vaccine 2000 [id number] 37 sanofi pasteur complet ed yellow fever vaccine 05/17/01 Given Ambulat ory Pharmac y hepatitis A adult vaccine 2000 [id number] 52 Merck & Company Inc complet ed hepatitis A adult vaccine 05/17/01 Given Ambulat ory Pharmac y tetanus-dipht h toxoids (Td) adult/adol 2000 [id number] 09 sanofi pasteur complet ed tetanus-d iphth toxoids (Td) adult/ado l 05/17/01 Given Ambulat ory Pharmac y hepatitis A adult vaccine 2000 [id number] 52 Merck & Company Inc complet ed hepatitis A adult vaccine 11/02/00 Given Ambulat ory Pharmac y tuberculin purified protein derivative 2000 [id number] 96 [facility] complet ed tuberculi n purified protein derivativ e 10/25/00 Given Ambulat ory Pharmac y poliovirus vaccine, inactivated 2000 [id number] 10 sanofi pasteur complet ed polioviru s vaccine, inactivat ed 10/25/00 Given Ambulat ory Pharmac y meningococcal polysaccharid e (MPSV4) 2000 [id number] 32 [facility] meningoco ccal polysacch aride (MPSV4) 10/25/00 Given Ambulat ory Pharmac y influenza virus vaccine, whole virus 2000 16 complet ed influenza virus vaccine, whole virus 10/25/00 Given Ambulat ory Pharmac y Results Combined list of recent chemistry, hematology and other laboratory results from Department of Defense and Veterans Affairs, ranging from 15 months to all on record, depending upon the facility. Order Name Results Value Reference Range Date Interpretation Specimen Comments Source Infectiou s Disease HIV-1/O/2 Non-Reac tive 1 (08/20/24 10:27 AM) 08/20 N Interpretiv e Data: INTERPRETAT ION: This method is a screening procedure for the detection of HIV p24 Antigen and Antibodies to HIV-1, including Group O, and/or HIV-2. NON-REACTIV E: HIV-1 antigen and HIV-1 / HIV-2 antibodies were not detected. No laboratory evidence of HIV infection. A negative test result does not exclude the possibility of exposure to or infection with HIV. HIV antibodies and/or p24 antigen may be undetectabl e in some stages of the infection and in some clinical conditions. If acute HIV infection is suspected, consider submitting another specimen to a reference laboratory for HIV-1 RNA. SCREEN REACTIVE - CONFIRMATIO N TO FOLLOW: Possible presence of HIV-1antibo dies, HIV-2 antibodies and/or HIV-1 p24 antigen. Specimen will reflex to the confirmatio n testing that fulfills the Center for Disease Control and Prevention' s HIV diagnostic algorithm. Refer to [facility] Lab Guide for additional information : [email or web address]://[employer]x. [facility]/ kj/kx5/EPIL ab/Pages/la b_guide.asp x Testing performed by [facility] [place] [address] [place] acquired by [employer] EPILAB Miscellan eous Sendouts Repository Sample Received (08/20/24 10:27 AM) 08/20 N [address] [place] acquired by [employer] EPILAB Encounters Combined list of: 1) Encounters from Department of Veterans Affairs facilities going backup to the last 18 months, not all VA inpatient encounters are included; 2) Encounters from the Department of Defense facilities going backup to 280 months. Location Location Details Encounter Type Encounter Number Reason For Visit Attending Provider ADM Date DC Date Status Disposition Source [id number] AMDS Between Visit [id number] 07/14 Discharge Disposition: Home or Self Care 8344R-4 39 AMDS [id number] AMDS Care Not Rendered [id number] 08/20 Discharge Disposition: Home or Self Care 8344R-4 39 AMDS [id number] AMDS Outpatient [id number] BETTY BARAJAS 09/05 Discharge Disposition: Home or Self Care 8344R-4 39 AMDS [id number] AMDS Between Visit [id number] 09/23 Discharge Disposition: Home or Self Care 8344R-4 39 [id number] for pre-emp loyment examina apolinar MONROE 09/23 Discharge Disposition: Home or Self Care 0035C[facility] [place] Procedures Combined list of: 1) Procedures from Department of Veterans Affairs facilities [facility], not all VA non-surgical procedures are included; 2) All procedures from the Department of Defense facilities. Procedure Procedure Type Code Date Perfomer Comments Sourc e No data available for this section Ambulatory P harmacy Social History Combined list of available smoking, tobacco, and other social history from Department of Defense and Veterans Affairs facilities. Social History Type Response Date Comment Sourc e Sex Representation Female (finding) 2022 Unknown Organization Sexual Orientation Ambula tory Pharmacy Gender identity Ambulator y Pharmacy Assessment and Plan Combined list of future care activities from Department of Defense and Veterans Affairs facilities (e.g., assessment and plan notes, appointments, orders, and referrals). Additional future care activities may be listed in the Plan of Care section. Result Assessment and Plan Date Source Assessment and Plan Extracted from:Title : AUDIOLOGY NOTE [id number] Author: KARI HERBERT Date: 09/23/24 Encounter for pre-employment examination Hearing WNL. Patient was given a Reference Audiogram to Re-Establish [place] in Right Ear.? ?Individual counseled on proper use of hand formed (Sound Guard) hearing protection insertion and uses in noise. ?Annual HCP review completed today. ?A copy of the hearing test was given to patient and a copy of the hearing test was uploaded into [employer]. Hearing conservation counseling?for?INDIVIDUAL?patient included: ? - Dangers of hazardous noise and prevention of noise-induced hearing loss - The importance of periodic audiograms and/or follow-up testing and evaluation - Elements and rationale of the hearing conservation program - Effects of noise on hearing (occupational and non-occupational) - Command and employee responsibilities for hearing conservation - Impact hearing loss may have on career, safety and mission - Service-specific requirements Total Counseling Time: 16 minutes ? AIR FORCE/RE-ESTABLISH BASELINE ? Kari Schroeder.?Karley Hearing Information Systems Technician Audiology Department [facility], [place], [place] ? Extracted from:Title: VERÓNICA MCFADDEN Author: YOVANA PAIGE Date: 08/20/24 member here for VERÓNICA MCFADDEN Addendum by YOVANA PAIGE on August 20, 2024 10:15 EST History of Refractive Surgery-?NO Contact Lenses-?NO Enrolled in Contact Lens Program-?N/A Gas Mask Inserts ordered-?N/A ?Current SRX on file-?YES DVA (uncorrected) OD: 20/25 OS:?20/25 DVA (Corrected) OD: 20/20 OS: 20/20 NVA (uncorrected) OD: 20/20 OS: 20/20 Phorias: ESO 0__ EXO _2__ RH _0__ LH _0__ Depth Perception Corrected?Pass through _F__ IOP OD:20 OS:19 Time:?1010 Optometry findings meet standards- _ Addendum by BETTY WALLACE MD on August 20, 2024 11:09 EST Chief Complaint: Member 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 No acute complaints.NO: Fly?waiver. IMR?green. Test results reviewed: Audio: Audiogram abnormal, member counseled to return to Public Health after 24hrs with reduced noise exposure for repeat audiogram Optometry:Meets vision standards for: Near and distant visual acuity, IOP, Depth perception, Phorias EKG:?Normal PHYSICAL EXAM: HEENT:?Normal Valsalva:?Normal Joints:?Normal Spine:Normal Skin:Normal Neuro:?Normal Lungs:?Normal Heart:?Normal Abdomen:?Normal Comments: ?ANNUAL PERIODIC HEALTH ASSESSMENT I. CLINICAL LAB SCIENTIST INFORMATION AND DEMOGRAPHICS (SMI) 1. Last Name: KIERAN 2. First Name: AVELINA 3. Middle Name: AMAYA 4. Assessment Date: 5. : 6. Age: 48 7. Gender: F 8. [employer] ID Number: [id number] 9. Service Branch: [employer] 10. 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 Unit Name: [facility] MARY 14. Duty Station/Location: [place] 15. [facility]: [id number] 16. Is this your first Periodic Health Assessment (PHA)?: N 17. Are you enrolled in a secure messaging system with your health care provider?: 18. Current contact information: Preferred Method: Email 2 DSN: Day Time Phone: [phone] Night Time Phone: [phone] Email 1: [email or web address] Email 2: [email or web address] Address: [address] [place] [address]: [place] State: [place] Zip Code: [address] 19. Point of contact who can always reach you: Name: Rodger Alcaraz Phone 1: [phone] Phone 2: EMAIL: [email or web address] Address: [address] [place] [address]: [place] State: [place] Zip Code: [address] II. DEPLOYMENT INFORMATION (DEP) 1. [ 1 ] Total number of deployments in the PAST 5 YEARS 2. [ [place] ] Primary country of last deployment 3. [ ] Date departed theater 4. [ N ] Are you going to deploy within the NEXT 120 DAYS? III. 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 [ Yes ] Does your specialty require an operational duty physical exam? 4. [ No ] Are you currently enrolled in a medical surveillance/occupational health program?: No IV. MEDICAL CONDITIONS (TONYA): 1. Since your last PHA, have you experienced any of the following health conditions, and if so, what is your status? [ ] Conditions with no medical care [ ] Conditions with medical care, but no longer under treatment [ ] Conditions with medical care, and NOW under treatment 2. Since your last PHA, have you experienced any of the following health conditions, and if so, what is your status? [ ] Conditions with no medical care [ ] Conditions with medical care, but no longer under treatment [ ] Conditions with medical care, and NOW under treatment 3. For any condition marked YES in question 1 or 2, are you currently on any profile or limited duty for that condition? [ ] Conditions 4. [ No ] Have you been based or stationed at a location where an open burn pit was used? 5. [ No ] Have you been exposed to toxic airborne chemicals or other airborne contaminants? 8. Have you had any surgery since your last PHA?: No 10.a. [ No ] Since your last PHA, has a health care provider recommended surgery(s) that you have not had? 11.a. [ No ] Do you currently require hearing aids, special medical supplies, CPAP, adaptive equipment, assistive technology devices, and/or other special accommodations? 12.a. [ Yes ] Do you have a waiver or profile for any part of your Service's physical fitness test? 12.b. [ Push-U ] Which component(s) of your physical fitness test are waived/profiled? 13.a. [ No ] Do you have any problems wearing a gas mask, ballistic helmet, body armor, and/or chemical/biological protective garments? 14.a. [ No ] Have you ever been told by a health care provider that you SHOULD NOT receive an immunization for medical reasons? 15.a. [ No ] Do you have a permanent profile or an Assignment Limitation Code C? 16.a. [ No ] Are you on a temporary profile or limited duty? 17. [ 0 ] During the PAST 2 years, how many times have you been placed on a temporary profile or on limited duty? V. INDIVIDUAL MEDICAL READINESS (IMR) 1. [ No ] Do you have any allergies? 3. [ Not required ] Do you have red medical warning dog tags? 4. [ Yes ] Do you wear corrective lenses? 5. [ 2 or more ] How many pairs of glasses do you have? 6. [ Yes ] Do you have gas mask inserts? . BEHAVIORAL HEALTH (MHA) 1. a. [ None ] Over the PAST MONTH, what major life stressors have you experienced that are a cause of significant concern or make it difficult for you to do your work, take care of things at home, or get along with other people (for example, serious conflicts with others, relationship problems, or a legal, disciplinary or financial problem)? 2. a. [ No ] In the PAST YEAR did you receive care for any mental health condition or concern such as, but not limited to post traumatic stress disorder (PTSD), depression, anxiety disorder, alcohol abuse or substance abuse? 3. [ Yes Daily multivitamin, St Salas Wort, Iron supplement, Magnesium supplement ] What prescription or over-the counter medications (including herbals/supplements) for sleep, pain, combat stress, or a mental health problem are you CURRENTLY taking? 4. a. [ No ] In the past 12 months, have you gambled? 5. a. [ Monthly or less ] How often do you have a drink containing alcohol? 5. b. [ 1 or 2 ] How many drinks containing alcohol do you have on a typical day when you are drinking? 5. c. [ Never ] How often do you have six or more drinks on one occasion? 6. Have you ever had any experience that was so frightening, horrible, or upsetting that in the PAST MONTH, you: 6. a. [ No ] Have had nightmares about it or thought about it when you did not want to? 6. b. [ No ] Tried hard not to think about it or went out of your way to avoid situations that remind you of it? 6. c. [ No ] Were constantly on guard, watchful or easily startled? 6. d. [ No ] [place] numb or detached from others, activities, or your surroundings? 6. e. [ Not answered ] [place] guilt or unable to stop blaming yourself or others for the event(s) or any problems the event(s) may have caused? 7. Over the LAST 2 WEEKS, how often have you been bothered by the following problems? 7. a. [ Not at all ] Little interest or pleasure in doing things 7. b. [ Not at all ] Feeling down, depressed, or hopeless 8. [ No ] Would you like to schedule an appointment with a health care provider to discuss any health concern(s)? 9. [ No ] Are you interested in receiving information or assistance for a stress, emotional or alcohol concern? 10. [ No ] Are you interested in receiving assistance for a family or relationship concern? 11. [ No ] Would you like to schedule a visit with a lunchroom mother, mental health care provider, or a community support counselor? VII. FAMILY HISTORY AND LIFESTYLE (LIF) 1. [ Excellent ] Overall, how would you rate your health during the PAST MONTH? 2. [ Cancer, Heart-related conditio ] Member indicates that family members have the following problems 3. The following family members has/had a history of cancer: Liver: Grandmother, Sister 4. The following family members has/had a history of heart-related conditions: High Blood Pressure: Mother 6. [ Yes ] I participate in moderate intensity physical activites at least 2.5 hours, or a combination of moderate and vigorous aerobic activites, for at least 75 minutes per week. 7. In a typical week, I do physical activities specifically designed to STRENGTHEN my muscles: [ 2 ] Day(s) per week 8. [ None ] What prescriptions or hdse-jsc-nrpyhaj medications are you CURRENTLY taking for health problems on a ROUTINE BASIS? 9. Which of the following products have you taken since your last PHA: Protein Supplements/Creatine: Less than once a month Herbal or Botanical Supplements in pills, gels, and/or tablet form: Two or more times a day Multi-Vitamins: Once a day Individual Vitamins or Minerals: Once a day 11. Think about the PAST 30 DAYS. How often did you eat/drink the following foods/beverages? [ 2 servings per day ] Fruits [ 2 servings per day ] Vegetables [ 1 serving per day ] Starchy Vegetables [ 2 servings per day ] Whole Grains [ 2 servings per day ] Dairy and Calcium Containing Foods [ 1 or 2 servings per week ] Fish [ 2 servings per day ] Lean Protein [ Rarely or Never ] Sugar-Sweetened Beverages 12. [ Yes ] Have you had a cholesterol check by a health childcare worker within the PAST 5 YEARS? 13.a. In the PAST 30 DAYS, which of the following products have you used on at least one day? None 15. Which of the following best describes your past tobacco use? I used tobacco in the past, but quit in 2005 16. [ No ] Are you regularly exposed to secondhand smoke? 17. [ 7 to 9 hours ] During the LAST 2 WEEKS, how many hours of sleep did you get on most days? 18. [ No ] During the LAST 2 WEEKS, have you felt impaired or unable to adequately perform due to sleepiness or poor quality sleep? 19. [ No ] Have you had any unexplained weight loss or gain since your last PHA? 20. Member is not at risk for sexually transmitted infections. 22. Since your last PHA, what, if anything, have you and your partner used to keep from getting ? [ Sterilization ] I am actively taking steps to prevent , including 23. [ No ] In the last year, have you or your partner had a scare, where you were not trying to get but were worried enough to use a home test? VIII. WOMEN'S HEALTH (WOM) 1. [ No ] Do you wish to receive contraceptive counseling? 2. [ I am not now, and was not or delivered in the past 12 months ] Which of the following best describes you? 3. [ No ] Have you had a total hysterectomy? 4. [ No ] Are you postmenopausal and no longer experiencing menstrual cycles? 5. [ No ] Are you currently taking folic acid or a vitamin containing folic acid 6. [ No ] Do you have heavy and/or irregular menstrual cycles/pain or premenstrual syndrome (PMS)? 7. [ No ] Do you have recurrent urinary tract infections? 8. [ No ] Have you had a Pap test within the PAST 3 YEARS? 9. [ Yes ] Have you ever had an abnormal Pap Test? 10. [ No ] Have you ever had a colposcopy, or cryotherapy on your cervix? 13. [ No ] Do you have a history of gestational diabetes? IX. RESERVE COMPONENT (RES) 1. [ No ] Do you have an injury, illness, Or disease which was incurred or aggravated while in a duty status since your last PHA? 4. [ Yes - ] Are you currently coverered under a health insurance policy? 5.a. [No, I have never applied for Worker's Compensation ] Do you have any current physical or mental health limitations related to a Worker's Compensation claim? 6. [ No ] Have you applied for or have you received a VA disability rating? X. OTHER MEDICAL (OTH) 1. [ 2 ] Rate the amount of pain you have had, on average, over the PAST 24 HOURS 2. [ Yes ] Are you receiving treatment for pain? 3. [ Yes ] Since your last PHA, have you received care or treatment for any medical and/or mental health condition(s) from a civilian or non- facility? 4. List the condition(s) treated and where the care was provided: Conditions: Ongoing shoulder pain (same as before - calcific tendonitis) Where: [facility] 5. Member acknowledged responsibility for reporting health issues. 7. [ No ] Woud you like to schedule an appointment with a health care provider to discuss any health concerns? XI. SEPARATION AND GROUP HOME 1. 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 ---- PART B. RECORD REVIEW AND RECOMMENDATIONS I. RECORD REVIEWER INFORMATION 1. Last Name: EVAN 2. First Name: JANESSA 3. Middle Name: 4. 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 EMAIL: [email or web address] 8. Facility: [address] [place] [address] 9. Unit: [address] [place] [address] 10. Address: [address] [place] [address] 11. State: [place] 12. Zip Code: [address] 13. Phone: [phone] 14. Date Record Review: II. MEDICAL SCREENING 1. 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 [ 5 feet 8 inches Date: ] physics faculty member's most recently documented height 3. [ 190 pounds Date: ] physics faculty member's most recently documented weight 4. [ 120/73 Date: ] physics faculty member's most recently documented blood pressure reading 5. [ No ] Does the physics faculty member have a history of abnormal blood pressure since their last PHA? 6. [ Yes ] Does the physics faculty member have a laboratory test of sickle cell trait documented in their permanent medical record? 7. 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 8. [ No Colon Cancer Screening Documented ] What is the date of the physics faculty member's most recently documented colon cancer screening? 9. [ No Active Medications Documented ] List of physics faculty member's active medications listed in their permanent medical record 10. 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 11. 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 [ No ] Is there a discrepancy between the physics faculty member's list of OUTSIDE care (from OTH5), and the OUTSIDE care found in the record? 13. 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 [ Not Answered ] Confirm that vaccine exemptions are listed in the medical record for each vaccine listed III. OCCUPATION-SPECIFIC EXAMINATIONS 1. 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 IV. FAMILY HISTORY AND LIFESTYLE 1. [ Yes ] Does the [id number] reflect the physics faculty member's reported family history? V. WOMEN'S HEALTH 3. [ Normal ] Date and result of the most recent Pap test . DEPLOYMENT-RELATED HEALTH ASSESSMENTS 1. 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 VII. INDIVIDUAL MEDICAL READINESS 1. 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 3. [ Classification: 1 ] Most recently documented dental exam 4. 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 5. [ Yes ] Is the physics faculty member current with Service-specific requirements for glasses and gas mask inserts? 6. Does the physics faculty member have the following laboratory tests documented in their permanent medical record? [ Yes ] HIV test within the PAST 24 months [ Yes ] G6PD results on file [ Yes ] Blood type and Rh on file [ Yes ] DNA test on file IX. ADDITIONAL RECORD REVIEWER COMMENTS 1. This record review indicates the potential need for provider notification or referral: Provider Notified 2. Additional comments about this record review that need to be forwarded to the Health Beam Builder Helper completing PART C: Reviewed E-HR. 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 Reports OTC QD MV, St salas wort, iron supp, mag supp. Due for MHA. No VA%. Mag supp not reviewed or approved per [id number]. Active profile, exp 07/15/24. 09/26/23 Mammo screening; no malignancy. SM seen by [facility] for R thyroid nodule 2019. Ultrasound thyroid 09/08/19 and 02/01/23; f/u 12 mos. Recommend in-person for flyer and f/u on thyroid issues. Date Record Review Completed: - PART C. HEALTH CARE PROVIDER I. MENTAL HEALTH ASSESSMENT (MHA) PROVIDER INFORMATION 1. Last Name: RADHA 2. First Name: BETTY 3. Middle Name: 4. 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 EMAIL: [email or web address] 8. Facility: [address] [place], [place] [address] 9. Unit: [address] [place] [address] 10. Address: [address] [place] [address] 11. State: [place] 12. Zip Code: [address] 13. Phone: [phone] 14. Date HCP Review initiated: 1. Member marked that they did not have a concern or a difficulty with a major life stressor. 2. Address concerns identified on member questions 2 and 3. History of mental health care: N/A Member's response: Provider's comments: Medications: Member indicated concern or yes Member's response: Daily multivitamin, St Salas Wort, Iron supplement, Magnesium supplement Daily multivitamin, St Salas Wort, Iron supplement, Magnesium supplement Provider's comments: as listed 3. Member's AUDIT-C screening score was 1. (nothing required) 4. Member did not carmen yes on two or more of questions 6a through 6e. 5. Member did not carmen More than half the days or nearly every day on question 7a or 7b. 6. Suicide risk evaluation. 6. a. Ask: Over the past month, have you wished you were or wished you could go to sleep and not wake up?: No 6. b. Ask: Have you actually had any thoughts of killing yourself?: No 6. f. 1. Ask: In you lifetime, have you done anything, started to do anything, or prepared to do anything to end your life?: No 6. g. Further risk assessment comments: 7. Member states that they have not had thoughts or concerns over the past month that they might hurt or lose control with someone. 9. Summary of Provider's identified concerns needing referrals: None 11. Comments: 13. Supplemental services recommended/information provided: No supplemental services required Date MHA Certified: ------ III. PERIODIC HEALTH ASSESSMENT (PHA) PROVIDER INFORMATION 1. Last Name: RADHA 2. First Name: BETTY 3. Middle Name: 4. Service Branch: [employer] 5. 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 EMAIL: [email or web address] 8. Facility: [facility] 9. Unit: [facility] 10. Address: [address] [place] [address] 11. State: [place] 12. Zip Code: [address] 13. Phone: [phone] 14. Date HCP Review initiated: IV. PERIODIC HEALTH ASSESSMENT PROVIDER RECOMMENDATIONS and REFERRALS 1. Provider concerns with this assessment: No issues or concerns identified V. SUMMARY AND COMMENTS 1. 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 Provider Comments: . INDIVIDUAL MEDICAL READINESS DISPOSITION DETERMINATION TONYA: Ready DEN: Ready IMM: Ready LAB: Ready ME: Ready IMR Status: Fully Medically Ready VII. 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 Reference [facility] 6490.07 Yes (physics faculty member DOES NOT currently have a medical condition that limits deployability) Date PHA Completed: END OF [id number] REPORT Impression: Meets?FCII?medical standards per KIKI 48-123/MSD. Aeromedical Disposition: No DNIF. DD 2992?signed. No AF469 changes based on this encounter. World-Wide Qualified. Extracted from:Title: Fly PHA / A Author: ANALI GARCIA Date: 06/16/23 mbr came in for appt Addendum by WILLY STERN V on June 16, 2023 10:04 EST History of Refractive Surgery- No?Contact Lenses- N/A?Enrolled in Contact Lens Program- N/A?Gas Mask Inserts ordered- No?Current SRX on file- No DVA (uncorrected) OD: 20/20 OS:?20/20 DVA (Corrected) OD: 20/20 OS: 20/20 NVA (uncorrected) OD: 20/30 OS: 20/30 NVA (Corrected) OD: 20/20 OS: 20/20 Phorias: ESO _0_ EXO __0_ RH __0_ LH __0_ Depth Perception Uncorrected?Pass through _F__ IOP OD: 13 OS: 13 Time:? 1000 Optometry findings meet standards- Yes Addendum by STEPHANIE FRANCOIS on June 16, 2023 10:45 EST ?Vitals: Blood Pressure:???117/79 Heart Rate: 74 Height: 68 Weight: 184 BMI: 27.98 Medications: OMEPRAZOLE, TRICE'S WORT, MULTIVITAMIN. Chronic Problems: NONE SF 507:?NONE _ Comments: Addendum by SHEKHAR GALEANA on June 16, 2023 11:33 EST Chief Complaint: Member 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 No acute complaints.Waiver for:Substandard vision, correctd to 20/20, indefinite waiver Initial Waiver Date:27 Mar 2014 Waiver Exp Date:???Indefinite IMR?green. Test results reviewed: Audio: Audiogram H-1, no asymmetric hearing loss, no significant threshhold shift Optometry:Meets vision standards for: Near and distant visual acuity, IOP, Depth perception, Phorias EKG:?Not Required PHYSICAL EXAM: HEENT:?Normal Valsalva:?Normal Joints:?Normal Spine:Normal Skin:Normal Neuro:?Normal Lungs:?Normal Heart:?Normal Abdomen:?Normal Comments: ?H/o left shoulder calcific tendonitis, no DR< on pushup profile, recent eval for DM, Hgb A1C, etc all normal, no dx of DM, h/o thyroid nodule, thyroid func tests normal, bx completed 06/15/2023, asymptomatic, found on routine exam, will bring in bx results once available, Previous completed Cipro gound test, declines NO GO ground testing; on St Salas wort supplement for premenopausal sx, no side effects and proteins and MVI-approved for use INSERT ASIMS PHA TEXT HERE ?ANNUAL PERIODIC HEALTH ASSESSMENT I. CLINICAL LAB SCIENTIST INFORMATION AND DEMOGRAPHICS (SMI) 1. Last Name: KIERAN 2. First Name: AVELINA 3. Middle Name: AMAYA 4. Assessment Date: 5. : 6. Age: 47 7. Gender: F 8. DoD ID Number: [id number] 9. Service Branch: [employer] 10. 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 Unit Name: [facility] [employer] 14. Duty Station/Location: [place] 15. UIC: [id number] 16. Is this your first Periodic Health Assessment (PHA)?: N 17. Are you enrolled in a secure messaging system with your health care provider?: 18. Current contact information: Preferred Method: Night Time Phone DSN: [id number] Day Time Phone: [phone] Night Time Phone: [phone] Email 1: [email or web address] Email 2: [email or web address] Address: [address] [place] [address]: [place] State: [place] Zip Code: [address] 19. Point of contact who can always reach you: Name: Rodger Alcaraz Phone 1: [phone] Phone 2: EMAIL: [email or web address] Address: [address] [place] [address]: [place] State: [place] Zip Code: [address] II. DEPLOYMENT INFORMATION (DEP) 1. [ 0 ] Total number of deployments in the PAST 5 YEARS 4. [ N ] Are you going to deploy within the NEXT 120 DAYS? III. 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 [ Yes ] Does your specialty require an operational duty physical exam? 4. [ No ] Are you currently enrolled in a medical surveillance/occupational health program?: No IV. MEDICAL CONDITIONS (TONYA): 1. Since your last PHA, have you experienced any of the following health conditions, and if so, what is your status? [ ] Conditions with no medical care [ ] Conditions with medical care, but no longer under treatment [ ] Conditions with medical care, and NOW under treatment 2. Since your last PHA, have you experienced any of the following health conditions, and if so, what is your status? [ ] Conditions with no medical care [ ] Conditions with medical care, but no longer under treatment [ ] Conditions with medical care, and NOW under treatment 3. For any condition marked YES in question 1 or 2, are you currently on any profile or limited duty for that condition? [ ] Conditions 4. [ No ] Have you been based or stationed at a location where an open burn pit was used? 5. [ No ] Have you been exposed to toxic airborne chemicals or other airborne contaminants? 8. Have you had any surgery since your last PHA?: No 10.a. [ No ] Since your last PHA, has a health care provider recommended surgery(s) that you have not had? 11.a. [ No ] Do you currently require hearing aids, special medical supplies, CPAP, adaptive equipment, assistive technology devices, and/or other special accommodations? 12.a. [ Yes ] Do you have a waiver or profile for any part of your Service's physical fitness test? 12.b. [ Push-U ] Which component(s) of your physical fitness test are waived/profiled? 13.a. [ No ] Do you have any problems wearing a gas mask, ballistic helmet, body armor, and/or chemical/biological protective garments? 14.a. [ No ] Have you ever been told by a health care provider that you SHOULD NOT receive an immunization for medical reasons? 15.a. [ No ] Do you have a permanent profile or an Assignment Limitation Code C? 16.a. [ No ] Are you on a temporary profile or limited duty? 17. [ 0 ] During the PAST 2 years, how many times have you been placed on a temporary profile or on limited duty? V. INDIVIDUAL MEDICAL READINESS (IMR) 1. [ No ] Do you have any allergies? 3. [ Not required ] Do you have red medical warning dog tags? 4. [ Yes ] Do you wear corrective lenses? 5. [ 2 or more ] How many pairs of glasses do you have? 6. [ Yes ] Do you have gas mask inserts? . BEHAVIORAL HEALTH (MHA) 1. a. [ None ] Over the PAST MONTH, what major life stressors have you experienced that are a cause of significant concern or make it difficult for you to do your work, take care of things at home, or get along with other people (for example, serious conflicts with others, relationship problems, or a legal, disciplinary or financial problem)? 2. a. [ No ] In the PAST YEAR did you receive care for any mental health condition or concern such as, but not limited to post traumatic stress disorder (PTSD), depression, anxiety disorder, alcohol abuse or substance abuse? 3. [ Yes [address] Premium Garden Wort Herb, 700mg 2x per day ] What prescription or over-the counter medications (including herbals/supplements) for sleep, pain, combat stress, or a mental health problem are you CURRENTLY taking? 4. a. [ No ] In the past 12 months, have you gambled? 5. a. [ Monthly or less ] How often do you have a drink containing alcohol? 5. b. [ 1 or 2 ] How many drinks containing alcohol do you have on a typical day when you are drinking? 5. c. [ Never ] How often do you have six or more drinks on one occasion? 6. Have you ever had any experience that was so frightening, horrible, or upsetting that in the PAST MONTH, you: 6. a. [ No ] Have had nightmares about it or thought about it when you did not want to? 6. b. [ No ] Tried hard not to think about it or went out of your way to avoid situations that remind you of it? 6. c. [ No ] Were constantly on guard, watchful or easily startled? 6. d. [ No ] [place] numb or detached from others, activities, or your surroundings? 6. e. [ Not answered ] [place] guilt or unable to stop blaming yourself or others for the event(s) or any problems the event(s) may have caused? 7. Over the LAST 2 WEEKS, how often have you been bothered by the following problems? 7. a. [ Not at all ] Little interest or pleasure in doing things 7. b. [ Not at all ] Feeling down, depressed, or hopeless 8. [ No ] Would you like to schedule an appointment with a health care provider to discuss any health concern(s)? 9. [ No ] Are you interested in receiving information or assistance for a stress, emotional or alcohol concern? 10. [ No ] Are you interested in receiving assistance for a family or relationship concern? 11. [ No ] Would you like to schedule a visit with a lunchroom mother, mental health care provider, or a community support counselor? VII. FAMILY HISTORY AND LIFESTYLE (LIF) 1. [ Excellent ] Overall, how would you rate your health during the PAST MONTH? 2. [ Cancer, Heart-related conditio ] Member indicates that family members have the following problems 3. The following family members has/had a history of cancer: Liver: Grandmother, Sister 4. The following family members has/had a history of heart-related conditions: High Blood Pressure: Mother 6. [ Yes ] I participate in moderate intensity physical activites at least 2.5 hours, or a combination of moderate and vigorous aerobic activites, for at least 75 minutes per week. 7. In a typical week, I do physical activities specifically designed to STRENGTHEN my muscles: [ 3 ] Day(s) per week 8. [ None ] What prescriptions or [id number] medications are you CURRENTLY taking for health problems on a ROUTINE BASIS? 9. Which of the following products have you taken since your last PHA: Protein Supplements/Creatine: Once a month Herbal or Botanical Supplements in pills, gels, and/or tablet form: Two or more times a day Multi-Vitamins: Once a day 11. Think about the PAST 30 DAYS. How often did you eat/drink the following foods/beverages? [ 2 servings per day ] Fruits [ 2 servings per day ] Vegetables [ 1 serving per day ] Starchy Vegetables [ 2 servings per day ] Whole Grains [ 2 servings per day ] Dairy and Calcium Containing Foods [ 1 or 2 servings per week ] Fish [ 1 serving per day ] Lean Protein [ Rarely or Never ] Sugar-Sweetened Beverages 12. [ Yes ] Have you had a cholesterol check by a health childcare worker within the PAST 5 YEARS? 13.a. In the PAST 30 DAYS, which of the following products have you used on at least one day? None 15. Which of the following best describes your past tobacco use? I used tobacco in the past, but quit in 2007 16. [ No ] Are you regularly exposed to secondhand smoke? 17. [ 7 to 9 hours ] During the LAST 2 WEEKS, how many hours of sleep did you get on most days? 18. [ No ] During the LAST 2 WEEKS, have you felt impaired or unable to adequately perform due to sleepiness or poor quality sleep? 19. [ No ] Have you had any unexplained weight loss or gain since your last PHA? 20. Member is not at risk for sexually transmitted infections. 22. Since your last PHA, what, if anything, have you and your partner used to keep from getting ? [ My partner(s) or I do not use any contraception. ] I am not actively taking steps to prevent as 23. [ No ] In the last year, have you or your partner had a scare, where you were not trying to get but were worried enough to use a home test? VIII. WOMEN'S HEALTH (WOM) 1. [ No ] Do you wish to receive contraceptive counseling? 2. [ I am not now, and was not or delivered in the past 12 months ] Which of the following best describes you? 3. [ No ] Have you had a total hysterectomy? 4. [ No ] Are you postmenopausal and no longer experiencing menstrual cycles? 5. [ No ] Are you currently taking folic acid or a vitamin containing folic acid 6. [ Yes, and I am having ongoing issues ] Do you have heavy and/or irregular menstrual cycles/pain or premenstrual syndrome (PMS)? 7. [ No ] Do you have recurrent urinary tract infections? 8. [ Yes ] Have you had a Pap test within the PAST 3 YEARS? 9. [ No ] Have you ever had an abnormal Pap Test? 13. [ No ] Do you have a history of gestational diabetes? IX. RESERVE COMPONENT (RES) 1. [ No ] Do you have an injury, illness, Or disease which was incurred or aggravated while in a duty status since your last PHA? 4. [ Yes - ] Are you currently coverered under a health insurance policy? 5.a. [No, I have never applied for Worker's Compensation ] Do you have any current physical or mental health limitations related to a Worker's Compensation claim? 6. [ No ] Have you applied for or have you received a VA disability rating? X. OTHER MEDICAL (OTH) 1. [ 0 ] Rate the amount of pain you have had, on average, over the PAST 24 HOURS 3. [ Yes ] Since your last PHA, have you received care or treatment for any medical and/or mental health condition(s) from a civilian or non- facility? 4. List the condition(s) treated and where the care was provided: Conditions: Possible pre-diabetes lots of testing done but all results normal, so no treatment needed Where: [facility] 5. Member acknowledged responsibility for reporting health issues. 7. [ No ] Woud you like to schedule an appointment with a health care provider to discuss any health concerns? XI. SEPARATION AND GROUP HOME 1. 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 ---- PART B. RECORD REVIEW AND RECOMMENDATIONS I. RECORD REVIEWER INFORMATION 1. Last Name: ANDRESSA 2. First Name: BYRON 3. Middle Name: MUNDO 4. 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 EMAIL: [email or web address] 8. Facility: [facility] 9. Unit: [facility] 10. Address: [address] [place] [address] 11. State: [place] 12. Zip Code: [address] 13. Phone: [phone] 14. Date Record Review: II. MEDICAL SCREENING 1. 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 [ 5 feet 8 inches Date: ] physics faculty member's most recently documented height 3. [ 184 pounds Date: ] physics faculty member's most recently documented weight 4. [ 118/76 Date: ] physics faculty member's most recently documented blood pressure reading 5. [ No ] Does the physics faculty member have a history of abnormal blood pressure since their last PHA? 6. [ Yes ] Does the physics faculty member have a laboratory test of sickle cell trait documented in their permanent medical record? 7. 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 9. 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 11. 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 [ No ] Is there a discrepancy between the physics faculty member's list of OUTSIDE care (from OT5), and the OUTSIDE care found in the record? 13. 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 [ Not Answered ] Confirm that vaccine exemptions are listed in the medical record for each vaccine listed III. OCCUPATION-SPECIFIC EXAMINATIONS 1. 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 IV. FAMILY HISTORY AND LIFESTYLE 1. [ Yes ] Does the [id number] reflect the physics faculty member's reported family history? V. WOMEN'S HEALTH 3. [ No Documented Pap Test ] Date and result of the most recent Pap test 4. [ ] Notes from review of health records associated with history of abnormal Pap, colposcopy, excisional procedure, or cryotherapy VII. INDIVIDUAL MEDICAL READINESS 1. 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 3. [ Classification: 2 ] Most recently documented dental exam 4. 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 5. [ Yes ] Is the physics faculty member current with Service-specific requirements for glasses and gas mask inserts? 6. Does the physics faculty member have the following laboratory tests documented in their permanent medical record? [ Yes ] HIV test within the PAST 24 months [ Yes ] G6PD results on file [ Yes ] Blood type and Rh on file [ Yes ] DNA test on file IX. ADDITIONAL RECORD REVIEWER COMMENTS 1. This record review indicates the potential need for provider notification or referral: Provider Notified 2. Additional comments about this record review that need to be forwarded to the Health Beam Builder Helper completing PART C: No deployments w/in past 5yrs. No active profiles. No major life stressors/BH concerns. No hx of gambling reported w/in this PHAQ. Alcohol consumption: monthly or less. Excellent health, sleep and exercise reported. Supplement use: protein/creatine, herbal/botanical, MVs. Tobacco use: quit in 2007. Self Reported: [address] Premium Garden Wort Herb, 700mg 2x per day. Member states doing pre diabetes testing, results normal, no additional tx was needed through [facility] Date Record Review Completed: - PART C. HEALTH CARE PROVIDER I. MENTAL HEALTH ASSESSMENT (MHA) PROVIDER INFORMATION 1. Last Name: LISSETT 2. First Name: SHEKHAR 3. Middle Name: 4. 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 EMAIL: [email or web address] 8. Facility: [address] [place], [place] [address] 9. Unit: [address] [place], [place] [address] 10. Address: [address] [place] [address] 11. State: [facility]. Zip Code: [address] 13. 14. Date HCP Review initiated: 1. Member marked that they did not have a concern or a difficulty with a major life stressor. 2. Address concerns identified on member questions 2 and 3. History of mental health care: N/A Member's response: Provider's comments: denies Medications: Member indicated concern or yes Member's response: [address] Premium Garden Wort Herb, 700mg 2x per day [address] Premium Garden Wort Herb, 700mg 2x per day Provider's comments: no med side effects, for premenopausal sx 3. Member's AUDIT-C screening score was 1. (nothing required) 4. Member did not carmen yes on two or more of questions 6a through 6e. 5. Member did not carmen More than half the days or nearly every day on question 7a or 7b. 6. Suicide risk evaluation. 6. a. Ask: Over the past month, have you wished you were or wished you could go to sleep and not wake up?: No 6. b. Ask: Have you actually had any thoughts of killing yourself?: No 6. f. 1. Ask: In you lifetime, have you done anything, started to do anything, or prepared to do anything to end your life?: No 6. g. Further risk assessment comments: 7. Member states that they have not had thoughts or concerns over the past month that they might hurt or lose control with someone. 9. Summary of Provider's identified concerns needing referrals: None 11. Comments: 13. Supplemental services recommended/information provided: No supplemental services required Date MHA Certified: ------ III. PERIODIC HEALTH ASSESSMENT (PHA) PROVIDER INFORMATION 1. Last Name: LISSETT 2. First Name: SHEKHAR 3. Middle Name: 4. 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 EMAIL: [email or web address] 8. Facility: [address] [place], [place] [address] 9. Unit: [address] [place], [place] [address] 10. Address: [address] [place] [address] [place]VE [place] 11. State: [place] 12. Zip Code: [address] 13. 14. Date HCP Review initiated: IV. PERIODIC HEALTH ASSESSMENT PROVIDER RECOMMENDATIONS and REFERRALS 1. Provider concerns with this assessment: No issues or concerns identified V. SUMMARY AND COMMENTS 1. 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 Provider Comments: Takes Garden Wort for premenopausal sx, no side effects, h/o left shoulder calcific tendonitis, no current meds, on pushup profile, no DR; h/o testing recently for DM, all testing, (HgB A1c, glucose tolerance test, etc normal, no dx DM. H/o thyroid nodules, thyroid func tests normal, had thyroid bx yesterday, will bring in results once available. Asymptomatic, nodule found on routine exam. On indefinite waiver for h/o substandard vision (Corrected to 20/20). . INDIVIDUAL MEDICAL READINESS DISPOSITION DETERMINATION TONYA: Ready DEN: Ready IMM: Ready LAB: Ready ME: Ready IMR Status: Fully Medically Ready VII. 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 Reference [facility] 6490.07 Yes (physics faculty member DOES NOT currently have a medical condition that limits deployability) Date PHA Completed: END OF [id number] REPORT Impression: Meets?_?medical standards per KIKI 48-123/MSD. Aeromedical Disposition: No DNIF. DD 2992?signed. No AF469 changes based on this encounter.(has current 469). World-Wide Qualified. Addendum by SHEKHAR GALEANA on June 16, 2023 13:00 EST Patient did have + STS, but H-1 profile and no ASHL so no DNIF and still cleared to fly. She will repeat audiogram after NF period to determine if shift persists. 10/22/[address] [place] [address] [place] Assessment and Plan Extracted from:Title : AUDIOLOGY NOTE [id number] Author: KARI HERBERT Date: 09/23/24 Encounter for pre-employment examination Hearing WNL. Patient was given a Reference Audiogram to Re-Establish Baseling in Right Ear.? ?Individual counseled on proper use of hand formed (Sound Guard) hearing protection insertion and uses in noise. ?Annual HCP review completed today. ?A copy of the hearing test was given to patient and a copy of the hearing test was uploaded into [employer]. Hearing conservation counseling?for?INDIVIDUAL?patient included: ? - Dangers of hazardous noise and prevention of noise-induced hearing loss - The importance of periodic audiograms and/or follow-up testing and evaluation - Elements and rationale of the hearing conservation program - Effects of noise on hearing (occupational and non-occupational) - Command and employee responsibilities for hearing conservation - Impact hearing loss may have on career, safety and mission - Service-specific requirements Total Counseling Time: 16 minutes ? AIR FORCE/RE-ESTABLISH BASELINE ? Kari Schroeder.?Karley Hearing Information Systems Technician Audiology Department [facility], [place], [place] ? Extracted from:Title: FLY PHA Author: YOVANA PAIGE Date: 08/20/24 member here for FLY PHA Addendum by YOVANA PAIGE on August 20, 2024 10:15 EST History of Refractive Surgery-?NO Contact Lenses-?NO Enrolled in Contact Lens Program-?N/A Gas Mask Inserts ordered-?N/A ?Current SRX on file-?YES DVA (uncorrected) OD: 20/25 OS:?20/25 DVA (Corrected) OD: 20/20 OS: 20/20 NVA (uncorrected) OD: 20/20 OS: 20/20 Phorias: ESO 0__ EXO _2__ RH _0__ LH _0__ Depth Perception Corrected?Pass through _F__ IOP OD:20 OS:19 Time:?1010 Optometry findings meet standards- _ Addendum by BETTY WALLACE MD on August 20, 2024 11:09 EST Chief Complaint: Member 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 No acute complaints.NO: Fly?waiver. IMR?green. Test results reviewed: Audio: Audiogram abnormal, member counseled to return to Public Health after 24hrs with reduced noise exposure for repeat audiogram Optometry:Meets vision standards for: Near and distant visual acuity, IOP, Depth perception, Phorias EKG:?Normal PHYSICAL EXAM: HEENT:?Normal Valsalva:?Normal Joints:?Normal Spine:Normal Skin:Normal Neuro:?Normal Lungs:?Normal Heart:?Normal Abdomen:?Normal Comments: ?ANNUAL PERIODIC HEALTH ASSESSMENT I. CLINICAL LAB SCIENTIST INFORMATION AND DEMOGRAPHICS (SMI) 1. Last Name: KIERAN 2. First Name: AVELINA 3. Middle Name: AMAYA 4. Assessment Date: 5. : 6. Age: 48 7. Gender: F 8. DoD ID Number: [id number] 9. Service Branch: [employer] 10. 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 Unit Name: [facility] [employer] 14. Duty Station/Location: [place] 15. UIC: [id number] 16. Is this your first Periodic Health Assessment (PHA)?: N 17. Are you enrolled in a secure messaging system with your health care provider?: 18. Current contact information: Preferred Method: Email 2 DSN: Day Time Phone: [phone] Night Time Phone: [phone] Email 1: [email or web address] Email 2: [email or web address] Address: [address] [place] [address]: [place] State: [place] Zip Code: [address] 19. Point of contact who can always reach you: Name: Rodger Kieran Phone 1: [phone] Phone 2: EMAIL: [email or web address] Address: [address] [place] [address]: [facility]: [place] Zip Code: [address] II. DEPLOYMENT INFORMATION (DEP) 1. [ 1 ] Total number of deployments in the PAST 5 YEARS 2. [ [place] ] Primary country of last deployment 3. [ ] Date departed theater 4. [ N ] Are you going to deploy within the NEXT 120 DAYS? III. 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 [ Yes ] Does your specialty require an operational duty physical exam? 4. [ No ] Are you currently enrolled in a medical surveillance/occupational health program?: No IV. MEDICAL CONDITIONS (TONYA): 1. Since your last PHA, have you experienced any of the following health conditions, and if so, what is your status? [ ] Conditions with no medical care [ ] Conditions with medical care, but no longer under treatment [ ] Conditions with medical care, and NOW under treatment 2. Since your last PHA, have you experienced any of the following health conditions, and if so, what is your status? [ ] Conditions with no medical care [ ] Conditions with medical care, but no longer under treatment [ ] Conditions with medical care, and NOW under treatment 3. For any condition marked YES in question 1 or 2, are you currently on any profile or limited duty for that condition? [ ] Conditions 4. [ No ] Have you been based or stationed at a location where an open burn pit was used? 5. [ No ] Have you been exposed to toxic airborne chemicals or other airborne contaminants? 8. Have you had any surgery since your last PHA?: No 10.a. [ No ] Since your last PHA, has a health care provider recommended surgery(s) that you have not had? 11.a. [ No ] Do you currently require hearing aids, special medical supplies, CPAP, adaptive equipment, assistive technology devices, and/or other special accommodations? 12.a. [ Yes ] Do you have a waiver or profile for any part of your Service's physical fitness test? 12.b. [ Push-U ] Which component(s) of your physical fitness test are waived/profiled? 13.a. [ No ] Do you have any problems wearing a gas mask, ballistic helmet, body armor, and/or chemical/biological protective garments? 14.a. [ No ] Have you ever been told by a health care provider that you SHOULD NOT receive an immunization for medical reasons? 15.a. [ No ] Do you have a permanent profile or an Assignment Limitation Code C? 16.a. [ No ] Are you on a temporary profile or limited duty? 17. [ 0 ] During the PAST 2 years, how many times have you been placed on a temporary profile or on limited duty? V. INDIVIDUAL MEDICAL READINESS (IMR) 1. [ No ] Do you have any allergies? 3. [ Not required ] Do you have red medical warning dog tags? 4. [ Yes ] Do you wear corrective lenses? 5. [ 2 or more ] How many pairs of glasses do you have? 6. [ Yes ] Do you have gas mask inserts? . BEHAVIORAL HEALTH (MHA) 1. a. [ None ] Over the PAST MONTH, what major life stressors have you experienced that are a cause of significant concern or make it difficult for you to do your work, take care of things at home, or get along with other people (for example, serious conflicts with others, relationship problems, or a legal, disciplinary or financial problem)? 2. a. [ No ] In the PAST YEAR did you receive care for any mental health condition or concern such as, but not limited to post traumatic stress disorder (PTSD), depression, anxiety disorder, alcohol abuse or substance abuse? 3. [ Yes Daily multivitamin, [place] Salas Wort, Iron supplement, Magnesium supplement ] What prescription or over-the counter medications (including herbals/supplements) for sleep, pain, combat stress, or a mental health problem are you CURRENTLY taking? 4. a. [ No ] In the past 12 months, have you gambled? 5. a. [ Monthly or less ] How often do you have a drink containing alcohol? 5. b. [ 1 or 2 ] How many drinks containing alcohol do you have on a typical day when you are drinking? 5. c. [ Never ] How often do you have six or more drinks on one occasion? 6. Have you ever had any experience that was so frightening, horrible, or upsetting that in the PAST MONTH, you: 6. a. [ No ] Have had nightmares about it or thought about it when you did not want to? 6. b. [ No ] Tried hard not to think about it or went out of your way to avoid situations that remind you of it? 6. c. [ No ] Were constantly on guard, watchful or easily startled? 6. d. [ No ] [place] numb or detached from others, activities, or your surroundings? 6. e. [ Not answered ] [place] guilt or unable to stop blaming yourself or others for the event(s) or any problems the event(s) may have caused? 7. Over the LAST 2 WEEKS, how often have you been bothered by the following problems? 7. a. [ Not at all ] Little interest or pleasure in doing things 7. b. [ Not at all ] Feeling down, depressed, or hopeless 8. [ No ] Would you like to schedule an appointment with a health care provider to discuss any health concern(s)? 9. [ No ] Are you interested in receiving information or assistance for a stress, emotional or alcohol concern? 10. [ No ] Are you interested in receiving assistance for a family or relationship concern? 11. [ No ] Would you like to schedule a visit with a lunchroom mother, mental health care provider, or a community support counselor? VII. FAMILY HISTORY AND LIFESTYLE (LIF) 1. [ Excellent ] Overall, how would you rate your health during the PAST MONTH? 2. [ Cancer, Heart-related conditio ] Member indicates that family members have the following problems 3. The following family members has/had a history of cancer: Liver: Grandmother, Sister 4. The following family members has/had a history of heart-related conditions: High Blood Pressure: Mother 6. [ Yes ] I participate in moderate intensity physical activites at least 2.5 hours, or a combination of moderate and vigorous aerobic activites, for at least 75 minutes per week. 7. In a typical week, I do physical activities specifically designed to STRENGTHEN my muscles: [ 2 ] Day(s) per week 8. [ None ] What prescriptions or [id number]-mvr-[id number] medications are you CURRENTLY taking for health problems on a ROUTINE BASIS? 9. Which of the following products have you taken since your last PHA: Protein Supplements/Creatine: Less than once a month Herbal or Botanical Supplements in pills, gels, and/or tablet form: Two or more times a day Multi-Vitamins: Once a day Individual Vitamins or Minerals: Once a day 11. Think about the PAST 30 DAYS. How often did you eat/drink the following foods/beverages? [ 2 servings per day ] Fruits [ 2 servings per day ] Vegetables [ 1 serving per day ] Starchy Vegetables [ 2 servings per day ] Whole Grains [ 2 servings per day ] Dairy and Calcium Containing Foods [ 1 or 2 servings per week ] Fish [ 2 servings per day ] Lean Protein [ Rarely or Never ] Sugar-Sweetened Beverages 12. [ Yes ] Have you had a cholesterol check by a health childcare worker within the PAST 5 YEARS? 13.a. In the PAST 30 DAYS, which of the following products have you used on at least one day? None 15. Which of the following best describes your past tobacco use? I used tobacco in the past, but quit in 2005 16. [ No ] Are you regularly exposed to secondhand smoke? 17. [ 7 to 9 hours ] During the LAST 2 WEEKS, how many hours of sleep did you get on most days? 18. [ No ] During the LAST 2 WEEKS, have you felt impaired or unable to adequately perform due to sleepiness or poor quality sleep? 19. [ No ] Have you had any unexplained weight loss or gain since your last PHA? 20. Member is not at risk for sexually transmitted infections. 22. Since your last PHA, what, if anything, have you and your partner used to keep from getting ? [ Sterilization ] I am actively taking steps to prevent , including 23. [ No ] In the last year, have you or your partner had a scare, where you were not trying to get but were worried enough to use a home test? VIII. WOMEN'S HEALTH (WOM) 1. [ No ] Do you wish to receive contraceptive counseling? 2. [ I am not now, and was not or delivered in the past 12 months ] Which of the following best describes you? 3. [ No ] Have you had a total hysterectomy? 4. [ No ] Are you postmenopausal and no longer experiencing menstrual cycles? 5. [ No ] Are you currently taking folic acid or a vitamin containing folic acid 6. [ No ] Do you have heavy and/or irregular menstrual cycles/pain or premenstrual syndrome (PMS)? 7. [ No ] Do you have recurrent urinary tract infections? 8. [ No ] Have you had a Pap test within the PAST 3 YEARS? 9. [ Yes ] Have you ever had an abnormal Pap Test? 10. [ No ] Have you ever had a colposcopy, or cryotherapy on your cervix? 13. [ No ] Do you have a history of gestational diabetes? IX. RESERVE COMPONENT (RES) 1. [ No ] Do you have an injury, illness, Or disease which was incurred or aggravated while in a duty status since your last PHA? 4. [ Yes - ] Are you currently coverered under a health insurance policy? 5.a. [No, I have never applied for Worker's Compensation ] Do you have any current physical or mental health limitations related to a Worker's Compensation claim? 6. [ No ] Have you applied for or have you received a VA disability rating? X. OTHER MEDICAL (OTH) 1. [ 2 ] Rate the amount of pain you have had, on average, over the PAST 24 HOURS 2. [ Yes ] Are you receiving treatment for pain? 3. [ Yes ] Since your last PHA, have you received care or treatment for any medical and/or mental health condition(s) from a civilian or non- facility? 4. List the condition(s) treated and where the care was provided: Conditions: Ongoing shoulder pain (same as before - calcific tendonitis) Where: [facility] 5. Member acknowledged responsibility for reporting health issues. 7. [ No ] Woud you like to schedule an appointment with a health care provider to discuss any health concerns? XI. SEPARATION AND GROUP HOME 1. 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 ---- PART B. RECORD REVIEW AND RECOMMENDATIONS I. RECORD REVIEWER INFORMATION 1. Last Name: EVAN 2. First Name: JANESSA 3. Middle Name: 4. Service Branch: [employer] 5. 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 EMAIL: [email or web address] 8. [facility] 9. Unit: [address] [facility] 10. Address: [address] [place] 11. State: [place] 12. Zip Code: [address] 13. Phone: [phone] 14. Date Record Review: II. MEDICAL SCREENING 1. 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 [ 5 feet 8 inches Date: ] physics faculty member's most recently documented height 3. [ 190 pounds Date: ] physics faculty member's most recently documented weight 4. [ 120/73 Date: ] physics faculty member's most recently documented blood pressure reading 5. [ No ] Does the physics faculty member have a history of abnormal blood pressure since their last PHA? 6. [ Yes ] Does the physics faculty member have a laboratory test of sickle cell trait documented in their permanent medical record? 7. 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 8. [ No Colon Cancer Screening Documented ] What is the date of the physics faculty member's most recently documented colon cancer screening? 9. [ No Active Medications Documented ] List of physics faculty member's active medications listed in their permanent medical record 10. 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 11. 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 [ No ] Is there a discrepancy between the physics faculty member's list of OUTSIDE care (from OTH5), and the OUTSIDE care found in the record? 13. 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 [ Not Answered ] Confirm that vaccine exemptions are listed in the medical record for each vaccine listed III. OCCUPATION-SPECIFIC EXAMINATIONS 1. 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 IV. FAMILY HISTORY AND LIFESTYLE 1. [ Yes ] Does the [id number] reflect the physics faculty member's reported family history? V. WOMEN'S HEALTH 3. [ Normal ] Date and result of the most recent Pap test . DEPLOYMENT-RELATED HEALTH ASSESSMENTS 1. 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 VII. INDIVIDUAL MEDICAL READINESS 1. 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 3. [ Classification: 1 ] Most recently documented dental exam 4. 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 5. [ Yes ] Is the physics faculty member current with Service-specific requirements for glasses and gas mask inserts? 6. Does the physics faculty member have the following laboratory tests documented in their permanent medical record? [ Yes ] HIV test within the PAST 24 months [ Yes ] G6PD results on file [ Yes ] Blood type and Rh on file [ Yes ] DNA test on file IX. ADDITIONAL RECORD REVIEWER COMMENTS 1. This record review indicates the potential need for provider notification or referral: Provider Notified 2. Additional comments about this record review that need to be forwarded to the Health Beam Builder Helper completing PART C: Reviewed E-HR. ROCIO is flyer. Reports OTC QD MV, St salas wort, iron supp, mag supp. Due for MHA. No VA%. Mag supp not reviewed or approved per [id number]. Active profile, exp 07/15/24. 09/26/23 Mammo screening; no malignancy. SM seen by [facility] for R thyroid nodule 2019. Ultrasound thyroid 09/08/19 and 02/01/23; f/u 12 mos. Recommend in-person for flyer and f/u on thyroid issues. Date Record Review Completed: - PART C. HEALTH CARE PROVIDER I. MENTAL HEALTH ASSESSMENT (MHA) PROVIDER INFORMATION 1. Last Name: RADHA 2. First Name: BETTY 3. Middle Name: 4. Service Branch: [employer] 5. 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 EMAIL: [email or web address] 8. Facility: [facility] 9. Unit: [facility] 10. Address: [address] [place] [address] 11. State: [place] 12. Zip Code: [address] 13. Phone: [phone] 14. Date HCP Review initiated: 1. Member marked that they did not have a concern or a difficulty with a major life stressor. 2. Address concerns identified on member questions 2 and 3. History of mental health care: N/A Member's response: Provider's comments: Medications: Member indicated concern or yes Member's response: Daily multivitamin, St Salas Wort, Iron supplement, Magnesium supplement Daily multivitamin, St Aslas Wort, Iron supplement, Magnesium supplement Provider's comments: as listed 3. Member's AUDIT-C screening score was 1. (nothing required) 4. Member did not carmen yes on two or more of questions 6a through 6e. 5. Member did not carmen More than half the days or nearly every day on question 7a or 7b. 6. Suicide risk evaluation. 6. a. Ask: Over the past month, have you wished you were or wished you could go to sleep and not wake up?: No 6. b. Ask: Have you actually had any thoughts of killing yourself?: No 6. f. 1. Ask: In you lifetime, have you done anything, started to do anything, or prepared to do anything to end your life?: No 6. g. Further risk assessment comments: 7. Member states that they have not had thoughts or concerns over the past month that they might hurt or lose control with someone. 9. Summary of Provider's identified concerns needing referrals: None 11. Comments: 13. Supplemental services recommended/information provided: No supplemental services required Date MHA Certified: ------ III. PERIODIC HEALTH ASSESSMENT (PHA) PROVIDER INFORMATION 1. Last Name: RADHA 2. First Name: BETTY 3. Middle Name: 4. 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 EMAIL: [email or web address] 8. Facility: [facility] 9. Unit: [facility] 10. Address: [address] [place] [address] 11. State: [place] 12. Zip Code: [address] 13. Phone: [phone] 14. Date HCP Review initiated: IV. PERIODIC HEALTH ASSESSMENT PROVIDER RECOMMENDATIONS and REFERRALS 1. Provider concerns with this assessment: No issues or concerns identified V. SUMMARY AND COMMENTS 1. 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 Provider Comments: . INDIVIDUAL MEDICAL READINESS DISPOSITION DETERMINATION TONYA: Ready DEN: Ready IMM: Ready LAB: Ready ME: Ready IMR Status: Fully Medically Ready VII. 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 Reference Christ 6490.07 Yes (physics faculty member DOES NOT currently have a medical condition that limits deployability) Date PHA Completed: END OF [id number] REPORT Impression: Meets?FCII?medical standards per KIKI 48-123/MSD. Aeromedical Disposition: No DNIF. DD 2992?signed. No AF469 changes based on this encounter. [employer] Qualified. Extracted from:Title: Fly PHA / MHA Author: ANALI GARCIA Date: 06/16/23 mbr came in for appt Addendum by WILLY STERN V on June 16, 2023 10:04 EST History of Refractive Surgery- No?Contact Lenses- N/A?Enrolled in Contact Lens Program- N/A?Gas Mask Inserts ordered- No?Current SRX on file- No DVA (uncorrected) OD: 20/20 OS:?20/20 DVA (Corrected) OD: 20/20 OS: 20/20 NVA (uncorrected) OD: 20/30 OS: 20/30 NVA (Corrected) OD: 20/20 OS: 20/20 Phorias: ESO _0_ EXO __0_ RH __0_ LH __0_ Depth Perception Uncorrected?Pass through _F__ IOP OD: 13 OS: 13 Time:? 1000 Optometry findings meet standards- Yes Addendum by STEPHANIE FRANCOIS on June 16, 2023 10:45 EST ?Vitals: Blood Pressure:???117/79 Heart Rate: 74 Height: 68 Weight: 184 BMI: 27.98 Medications: OMEPRAZOLE, TRICE'S WORT, MULTIVITAMIN. Chronic Problems: NONE 507:?NONE _ Comments: Addendum by SHEKHAR GALEANA on June 16, 2023 11:33 EST Chief Complaint: Member 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 No acute complaints.Waiver for:Substandard vision, correctd to 20/20, indefinite waiver Initial Waiver Date:27 Mar 2014 Waiver Exp Date:???Indefinite IMR?green. Test results reviewed: Audio: Audiogram H-1, no asymmetric hearing loss, no significant threshhold shift Optometry:Meets vision standards for: Near and distant visual acuity, IOP, Depth perception, Phorias EKG:?Not Required PHYSICAL EXAM: HEENT:?Normal Valsalva:?Normal Joints:?Normal Spine:Normal Skin:Normal Neuro:?Normal Lungs:?Normal Heart:?Normal Abdomen:?Normal Comments: ?H/o left shoulder calcific tendonitis, no DR< on pushup profile, recent eval for DM, Hgb A1C, etc all normal, no dx of DM, h/o thyroid nodule, thyroid func tests normal, bx completed 06/15/2023, asymptomatic, found on routine exam, will bring in bx results once available, Previous completed Cipro gound test, declines NO GO ground testing; on St Salas wort supplement for premenopausal sx, no side effects and proteins and MVI-approved for use INSERT ASIMS PHA TEXT HERE ?ANNUAL PERIODIC HEALTH ASSESSMENT I. CLINICAL LAB SCIENTIST INFORMATION AND DEMOGRAPHICS (SMI) 1. Last Name: KIERAN 2. First Name: AVELINA 3. Middle Name: AMAYA 4. Assessment Date: 5. : 6. Age: 47 7. Gender: F 8. [employer] ID Number: [id number] 9. Service Branch: [employer] 10. 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 Unit Name: Mary BRISENO 14. Duty Station/Location: [place] 15. [facility]: [id number] 16. Is this your first Periodic Health Assessment (PHA)?: N 17. Are you enrolled in a secure messaging system with your health care provider?: 18. Current contact information: Preferred Method: Night Time Phone DSN: [id number] Day Time Phone: [phone] Night Time Phone: [phone] Email 1: [email or web address] Email 2: [email or web address] Address: [address] [place] [address]: [place] State: [place] Zip Code: [address] 19. Point of contact who can always reach you: Name: Rodger Alcaraz Phone 1: [phone] Phone 2: EMAIL: [email or web address] Address: [address] [place] [address]: [place] State: [place] Zip Code: [address] II. DEPLOYMENT INFORMATION (DEP) 1. [ 0 ] Total number of deployments in the PAST 5 YEARS 4. [ N ] Are you going to deploy within the NEXT 120 DAYS? III. 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 [ Yes ] Does your specialty require an operational duty physical exam? 4. [ No ] Are you currently enrolled in a medical surveillance/occupational health program?: No IV. MEDICAL CONDITIONS (TONYA): 1. Since your last PHA, have you experienced any of the following health conditions, and if so, what is your status? [ ] Conditions with no medical care [ ] Conditions with medical care, but no longer under treatment [ ] Conditions with medical care, and NOW under treatment 2. Since your last PHA, have you experienced any of the following health conditions, and if so, what is your status? [ ] Conditions with no medical care [ ] Conditions with medical care, but no longer under treatment [ ] Conditions with medical care, and NOW under treatment 3. For any condition marked YES in question 1 or 2, are you currently on any profile or limited duty for that condition? [ ] Conditions 4. [ No ] Have you been based or stationed at a location where an open burn pit was used? 5. [ No ] Have you been exposed to toxic airborne chemicals or other airborne contaminants? 8. Have you had any surgery since your last PHA?: No 10.a. [ No ] Since your last PHA, has a health care provider recommended surgery(s) that you have not had? 11.a. [ No ] Do you currently require hearing aids, special medical supplies, CPAP, adaptive equipment, assistive technology devices, and/or other special accommodations? 12.a. [ Yes ] Do you have a waiver or profile for any part of your Service's physical fitness test? 12.b. [ Push-U ] Which component(s) of your physical fitness test are waived/profiled? 13.a. [ No ] Do you have any problems wearing a gas mask, ballistic helmet, body armor, and/or chemical/biological protective garments? 14.a. [ No ] Have you ever been told by a health care provider that you SHOULD NOT receive an immunization for medical reasons? 15.a. [ No ] Do you have a permanent profile or an Assignment Limitation Code C? 16.a. [ No ] Are you on a temporary profile or limited duty? 17. [ 0 ] During the PAST 2 years, how many times have you been placed on a temporary profile or on limited duty? V. INDIVIDUAL MEDICAL READINESS (IMR) 1. [ No ] Do you have any allergies? 3. [ Not required ] Do you have red medical warning dog tags? 4. [ Yes ] Do you wear corrective lenses? 5. [ 2 or more ] How many pairs of glasses do you have? 6. [ Yes ] Do you have gas mask inserts? . BEHAVIORAL HEALTH (MHA) 1. a. [ None ] Over the PAST MONTH, what major life stressors have you experienced that are a cause of significant concern or make it difficult for you to do your work, take care of things at home, or get along with other people (for example, serious conflicts with others, relationship problems, or a legal, disciplinary or financial problem)? 2. a. [ No ] In the PAST YEAR did you receive care for any mental health condition or concern such as, but not limited to post traumatic stress disorder (PTSD), depression, anxiety disorder, alcohol abuse or substance abuse? 3. [ Yes [address] Premium Garden Wort Herb, 700mg 2x per day ] What prescription or over-the counter medications (including herbals/supplements) for sleep, pain, combat stress, or a mental health problem are you CURRENTLY taking? 4. a. [ No ] In the past 12 months, have you gambled? 5. a. [ Monthly or less ] How often do you have a drink containing alcohol? 5. b. [ 1 or 2 ] How many drinks containing alcohol do you have on a typical day when you are drinking? 5. c. [ Never ] How often do you have six or more drinks on one occasion? 6. Have you ever had any experience that was so frightening, horrible, or upsetting that in the PAST MONTH, you: 6. a. [ No ] Have had nightmares about it or thought about it when you did not want to? 6. b. [ No ] Tried hard not to think about it or went out of your way to avoid situations that remind you of it? 6. c. [ No ] Were constantly on guard, watchful or easily startled? 6. d. [ No ] [place] numb or detached from others, activities, or your surroundings? 6. e. [ Not answered ] [place] guilt or unable to stop blaming yourself or others for the event(s) or any problems the event(s) may have caused? 7. Over the LAST 2 WEEKS, how often have you been bothered by the following problems? 7. a. [ Not at all ] Little interest or pleasure in doing things 7. b. [ Not at all ] Feeling down, depressed, or hopeless 8. [ No ] Would you like to schedule an appointment with a health care provider to discuss any health concern(s)? 9. [ No ] Are you interested in receiving information or assistance for a stress, emotional or alcohol concern? 10. [ No ] Are you interested in receiving assistance for a family or relationship concern? 11. [ No ] Would you like to schedule a visit with a lunchroom mother, mental health care provider, or a community support counselor? VII. FAMILY HISTORY AND LIFESTYLE (LIF) 1. [ Excellent ] Overall, how would you rate your health during the PAST MONTH? 2. [ Cancer, Heart-related conditio ] Member indicates that family members have the following problems 3. The following family members has/had a history of cancer: Liver: Grandmother, Sister 4. The following family members has/had a history of heart-related conditions: High Blood Pressure: Mother 6. [ Yes ] I participate in moderate intensity physical activites at least 2.5 hours, or a combination of moderate and vigorous aerobic activites, for at least 75 minutes per week. 7. In a typical week, I do physical activities specifically designed to STRENGTHEN my muscles: [ 3 ] Day(s) per week 8. [ None ] What prescriptions or vtom-ivc-kacdmce medications are you CURRENTLY taking for health problems on a ROUTINE BASIS? 9. Which of the following products have you taken since your last PHA: Protein Supplements/Creatine: Once a month Herbal or Botanical Supplements in pills, gels, and/or tablet form: Two or more times a day Multi-Vitamins: Once a day 11. Think about the PAST 30 DAYS. How often did you eat/drink the following foods/beverages? [ 2 servings per day ] Fruits [ 2 servings per day ] Vegetables [ 1 serving per day ] Starchy Vegetables [ 2 servings per day ] Whole Grains [ 2 servings per day ] Dairy and Calcium Containing Foods [ 1 or 2 servings per week ] Fish [ 1 serving per day ] Lean Protein [ Rarely or Never ] Sugar-Sweetened Beverages 12. [ Yes ] Have you had a cholesterol check by a health childcare worker within the PAST 5 YEARS? 13.a. In the PAST 30 DAYS, which of the following products have you used on at least one day? None 15. Which of the following best describes your past tobacco use? I used tobacco in the past, but quit in 2007 16. [ No ] Are you regularly exposed to secondhand smoke? 17. [ 7 to 9 hours ] During the LAST 2 WEEKS, how many hours of sleep did you get on most days? 18. [ No ] During the LAST 2 WEEKS, have you felt impaired or unable to adequately perform due to sleepiness or poor quality sleep? 19. [ No ] Have you had any unexplained weight loss or gain since your last PHA? 20. Member is not at risk for sexually transmitted infections. 22. Since your last PHA, what, if anything, have you and your partner used to keep from getting ? [ My partner(s) or I do not use any contraception. ] I am not actively taking steps to prevent as 23. [ No ] In the last year, have you or your partner had a scare, where you were not trying to get but were worried enough to use a home test? VIII. WOMEN'S HEALTH (WOM) 1. [ No ] Do you wish to receive contraceptive counseling? 2. [ I am not now, and was not or delivered in the past 12 months ] Which of the following best describes you? 3. [ No ] Have you had a total hysterectomy? 4. [ No ] Are you postmenopausal and no longer experiencing menstrual cycles? 5. [ No ] Are you currently taking folic acid or a vitamin containing folic acid 6. [ Yes, and I am having ongoing issues ] Do you have heavy and/or irregular menstrual cycles/pain or premenstrual syndrome (PMS)? 7. [ No ] Do you have recurrent urinary tract infections? 8. [ Yes ] Have you had a Pap test within the PAST 3 YEARS? 9. [ No ] Have you ever had an abnormal Pap Test? 13. [ No ] Do you have a history of gestational diabetes? IX. RESERVE COMPONENT (RES) 1. [ No ] Do you have an injury, illness, Or disease which was incurred or aggravated while in a duty status since your last PHA? 4. [ Yes - ] Are you currently coverered under a health insurance policy? 5.a. [No, I have never applied for Worker's Compensation ] Do you have any current physical or mental health limitations related to a Worker's Compensation claim? 6. [ No ] Have you applied for or have you received a [place] disability rating? X. OTHER MEDICAL (OTH) 1. [ 0 ] Rate the amount of pain you have had, on average, over the PAST 24 HOURS 3. [ Yes ] Since your last PHA, have you received care or treatment for any medical and/or mental health condition(s) from a civilian or non- facility? 4. List the condition(s) treated and where the care was provided: Conditions: Possible pre-diabetes lots of testing done but all results normal, so no treatment needed Where: [facility] 5. Member acknowledged responsibility for reporting health issues. 7. [ No ] Woud you like to schedule an appointment with a health care provider to discuss any health concerns? XI. SEPARATION AND GROUP HOME 1. 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 ---- PART B. RECORD REVIEW AND RECOMMENDATIONS I. RECORD REVIEWER INFORMATION 1. Last Name: ANDRESSA 2. First Name: BYRON 3. Middle Name: MUNDO 4. Service Branch: [employer] 5. 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 EMAIL: [email or web address] 8. Facility: [facility] 9. Unit: [facility] 10. Address: [address] [place] [address] 11. State: [place] 12. Zip Code: [address] 13. Phone: [phone] 14. Date Record Review: II. MEDICAL SCREENING 1. 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 [ 5 feet 8 inches Date: ] physics faculty member's most recently documented height 3. [ 184 pounds Date: ] physics faculty member's most recently documented weight 4. [ 118/76 Date: ] physics faculty member's most recently documented blood pressure reading 5. [ No ] Does the physics faculty member have a history of abnormal blood pressure since their last PHA? 6. [ Yes ] Does the physics faculty member have a laboratory test of sickle cell trait documented in their permanent medical record? 7. 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 9. [ [address] Premium Garden Wort Herb, 700mg 2x per day ] List of physics faculty member's active medications listed in their permanent medical record 10. 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 11. 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 [ No ] Is there a discrepancy between the physics faculty member's list of OUTSIDE care (from OTH5), and the OUTSIDE care found in the record? 13. 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 [ Not Answered ] Confirm that vaccine exemptions are listed in the medical record for each vaccine listed III. OCCUPATION-SPECIFIC EXAMINATIONS 1. 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 IV. FAMILY HISTORY AND LIFESTYLE 1. [ Yes ] Does the [id number] reflect the physics faculty member's reported family history? V. WOMEN'S HEALTH 3. [ No Documented Pap Test ] Date and result of the most recent Pap test 4. [ ] Notes from review of health records associated with history of abnormal Pap, colposcopy, excisional procedure, or cryotherapy VII. INDIVIDUAL MEDICAL READINESS 1. 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 3. [ Classification: 2 ] Most recently documented dental exam 4. 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 5. [ Yes ] Is the physics faculty member current with Service-specific requirements for glasses and gas mask inserts? 6. Does the physics faculty member have the following laboratory tests documented in their permanent medical record? [ Yes ] HIV test within the PAST 24 months [ Yes ] G6PD results on file [ Yes ] Blood type and Rh on file [ Yes ] DNA test on file IX. ADDITIONAL RECORD REVIEWER COMMENTS 1. This record review indicates the potential need for provider notification or referral: Provider Notified 2. Additional comments about this record review that need to be forwarded to the Health Beam Builder Helper completing PART C: No deployments w/in past 5yrs. No active profiles. No major life stressors/BH concerns. No hx of gambling reported w/in this PHAQ. Alcohol consumption: monthly or less. Excellent health, sleep and exercise reported. Supplement use: protein/creatine, herbal/botanical, MVs. Tobacco use: quit in 2007. Self Reported: [address] Premium Garden Wort Herb, 700mg 2x per day. Member states doing pre diabetes testing, results normal, no additional tx was needed through [facility] Date Record Review Completed: - PART C. HEALTH CARE PROVIDER I. MENTAL HEALTH ASSESSMENT (MHA) PROVIDER INFORMATION 1. Last Name: LISSETT 2. First Name: SHEKHAR 3. Middle Name: 4. 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 EMAIL: [email or web address] 8. Facility: [facility] 9. Unit: [facility] 10. Address: [address] [place] [address] 11. State: [place] 12. Zip Code: [address] 13. 14. Date HCP Review initiated: 1. Member marked that they did not have a concern or a difficulty with a major life stressor. 2. Address concerns identified on member questions 2 and 3. History of mental health care: N/A Member's response: Provider's comments: denies Medications: Member indicated concern or yes Member's response: [address] Premium Garden Wort Herb, 700mg 2x per day [address] Premium Garden Wort Herb, 700mg 2x per day Provider's comments: no med side effects, for premenopausal sx 3. Member's AUDIT-C screening score was 1. (nothing required) 4. Member did not carmen yes on two or more of questions 6a through 6e. 5. Member did not carmen More than half the days or nearly every day on question 7a or 7b. 6. Suicide risk evaluation. 6. a. Ask: Over the past month, have you wished you were or wished you could go to sleep and not wake up?: No 6. b. Ask: Have you actually had any thoughts of killing yourself?: No 6. f. 1. Ask: In you lifetime, have you done anything, started to do anything, or prepared to do anything to end your life?: No 6. g. Further risk assessment comments: 7. Member states that they have not had thoughts or concerns over the past month that they might hurt or lose control with someone. 9. Summary of Provider's identified concerns needing referrals: None 11. Comments: 13. Supplemental services recommended/information provided: No supplemental services required Date MHA Certified: ------ III. PERIODIC HEALTH ASSESSMENT (PHA) PROVIDER INFORMATION 1. Last Name: LISSETT 2. First Name: SHEKHAR 3. Middle Name: 4. 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 EMAIL: [email or web address] 8. Facility: [facility] 9. Unit: [facility] 10. Address: [address] [place] [address] 11. State: [place] 12. Zip Code: [address] 13. 14. Date HCP Review initiated: IV. PERIODIC HEALTH ASSESSMENT PROVIDER RECOMMENDATIONS and REFERRALS 1. Provider concerns with this assessment: No issues or concerns identified V. SUMMARY AND COMMENTS 1. 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 Provider Comments: Takes [employer] for premenopausal sx, no side effects, h/o left shoulder calcific tendonitis, no current meds, on pushup profile, no DR; h/o testing recently for DM, all testing, (HgB A1c, glucose tolerance test, etc normal, no dx DM. H/o thyroid nodules, thyroid func tests normal, had thyroid bx yesterday, will bring in results once available. Asymptomatic, nodule found on routine exam. On indefinite waiver for h/o substandard vision (Corrected to 20/20). . INDIVIDUAL MEDICAL READINESS DISPOSITION DETERMINATION TONYA: Ready DEN: Ready IMM: Ready LAB: Ready ME: Ready IMR Status: Fully Medically Ready VII. 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 Reference [facility] 6490.07 Yes (physics faculty member DOES NOT currently have a medical condition that limits deployability) Date PHA Completed: END OF [id number] REPORT Impression: Meets?_?medical standards per KIKI 48-123/MSD. Aeromedical Disposition: No DNIF. DD 2992?signed. No AF469 changes based on this encounter.(has current 469). [employer]. Addendum by SHEKHAR GALEANA on June 16, 2023 13:00 EST Patient did have + STS, but H-1 profile and no ASHL so no DNIF and still cleared to fly. She will repeat audiogram after NF period to determine if shift persists. 10/22/2024 [id number] AMDS Functional Status Combined list of recent functional and cognitive assessments recorded at [facility]VA Functional Brogue Measurement (FIM) Scale: 1 = Total Assistance (Subject = 0% +), 2 = Maximal Assistance (Subject = 25% +), 3 = Moderate Assistance (Subject = 50% +), 4 = Minimal Assistance (Subject = 75% +), 5 = Supervision, 6 = Modified Brogue (Device), 7 = Complete Brogue (Timely, Safely). Assessment Date/Time Source Assessment Type Assessment Skill Assessment Score Assessment Details No data available for this section
== END 2024-10-22 12:20 | disposition home or self-care (01) ==
LOC: HO.HMCC 10:48
PROVIDERS: PCP Internal Medicine; Visit Provider Internal Medicine
DX: Z00.01 Encounter for general adult medical examination with abnormal findings (principal); E04.2 Nontoxic multinodular goiter; F32.81 Premenstrual dysphoric disorder; E04.1 Nontoxic single thyroid nodule; M25.522 Pain in left elbow; Z71.89 Other specified counseling; Z00.00 Encounter for general adult medical examination without abnormal findings

== ENCOUNTER → 2024-10-22 10:47 | Outpatient (BNVA) | payer OTHER, SELFPAY | PROVIDERS: PCP Internal Medicine; Visit Provider Internal Medicine | DX: Z00.01 Encounter for general adult medical examination with abnormal findings (principal); E04.2 Nontoxic multinodular goiter; F32.81 Premenstrual dysphoric disorder; M25.552 Pain in left hip; Z71.89 Other specified counseling; Z87.891 Personal history of nicotine dependence | CPT/HCPCS: 96127; 99497 ==

== ENCOUNTER 2024-10-24 07:36 | Outpatient (REF) | payer OTHER, SELFPAY ==
[2024-10-24 10:27] LABS: MANUAL DIFF FLAG NO
[2024-10-24 10:32] LABS: Basophils Percent Auto 0.6 % (0-2); Eosinophils Absolute Auto 0.2 X10*3/uL (0.0-0.4); Eosinophils Percent Auto 2.4 % (0-4); Hematocrit 38.2 % (37.0-47.0); Hemoglobin 12.9 g/dl (12.0-16.0); Imm Gran Abs Auto 0.02 X10*3/uL (0.00-0.03); Imm Gran Pct Auto 0.3 % (0.0-0.4); Lymphocytes Absolute Auto 1.3 X10*3/uL (1.2-4.9); Lymphocytes Percent Auto 21.4 % (20-40); Mean Corpuscular HGB Conc 33.8 g/dl (31.0-35.0); Mean Corpuscular Volume 88.8 fL (80.0-98.0); Mean Platelet Volume 9.9 fL (9.4-12.3); Monocytes Absolute Auto 0.4 X10*3/uL (0.1-1.2); Monocytes Percent Auto 6.6 % (2-11); Neutrophils Absolute Auto 4.3 x10*3/uL (2.0-8.3); Neutrophils Percent Auto 68.7 % (45-73); Platelet Count 398 X10*3/uL (160-400); Red Cell Distribution Width 11.9 % (11.0-16.0); White Blood Count 6.3 X10*3/uL (4.8-10.8)
[2024-10-24 10:45] LABS: Anion Gap 8 (12-20); Blood Urea Nitrogen 10 mg/dL (9-16); Calcium 9.4 mg/dL (8.4-10.2); Carbon Dioxide 27 mmol/L (22-29); Chloride 108 mmol/L (96-108); Cholesterol 153 mg/dL (<200); Estimated Glomerular Filt Rate > 60; Glucose Fasting 85 mg/dL (60-99); HDL Cholesterol 51 mg/dL (>40); LDL Cholesterol Calculated 85 mg/dL (<100); Sodium 139 mmol/L (135-145); Triglycerides 86 mg/dL (<150)
[2024-10-24 11:03] LABS: Free T4 (Free Thyroxine) 0.95 ng/dL (0.71-1.85); Thyroid Stimulating Hormone 1.46 uIU/mL (0.32-4.0); Vitamin D 25-OH Total 48.3 ng/mL (>30)
[2024-10-27 18:13] LABS: Thyroid Peroxidase Antibodies <1 IU/mL (<9)
== END 2024-10-24 07:37 | disposition home or self-care (01) ==
LOC: HO.HMGCLDS 07:36
PROVIDERS: PCP Internal Medicine; Visit Provider Internal Medicine
DX: E04.1 Nontoxic single thyroid nodule (principal); F32.81 Premenstrual dysphoric disorder; E04.2 Nontoxic multinodular goiter
CPT/HCPCS: 36415; 80048; 80061; 82306; 84439; 84443; 85025; 86376